=== PATIENT | female | born 1960 | race Caucasian/White ===

== ENCOUNTER 2017-09-01 08:13 | Inpatient (IN) ==
--- NOTE | 2017-09-01 09:35 | ED ---
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 She states over the past day she has been having swelling and pain to her left leg. She states in the past she was told that her great saphenous vein did not give blood flow back to her heart and that is why they put her on the diuretic. She denies prior blood clot. She denies travel history. Duration of symptoms has been 1 day. Location is entire left leg complaint: other (left leg pain and swelling) Onset (ago): day(s) Relieving factors: nothing Exacerbating factors: movement Associated symptoms: swelling Other symptoms: none Related Data Home Medications Medication Instructions Recorded Confirmed bupropion HCl [Wellbutrin XL] 300 mg PO QAM 09/01/17 09/01/17 clonazepam 0.5 mg PO BID PRN 09/01/17 09/01/17 dicyclomine 10 mg PO QID PRN 09/01/17 09/01/17 escitalopram oxalate 20 mg PO DAILY 09/01/17 09/01/17 hydrochlorothiazide 25 mg PO DAILY 09/01/17 09/01/17 levothyroxine 112 mcg PO DAILY 09/01/17 09/01/17 pantoprazole 40 mg PO DAILY 09/01/17 09/01/17 potassium chloride 10 meq PO DAILY 09/01/17 09/01/17 simvastatin 10 mg PO QPM 09/01/17 09/01/17 Allergies Allergy/AdvReac Type Severity Reaction Status Date / Time prednisone Allergy Confusion Verified 09/01/17 09:15 Review of Systems Except as stated in HPI: all other systems reviewed are negative [facility] Medical History Medical History Anxiety (Acute) Bradycardia (Acute) H/O thyroidectomy (Acute) H/O: hysterectomy (Acute) High cholesterol (Acute) Surgical History Surgical History Hx of cholecystectomy (Acute) Hx of tonsillectomy (Acute) Social History Social History Substance History: No History of Abuse Smoking Status: Never smoker How Often Do You Have a Drink Containing Alcohol: Never Recent Travel in [facility] within the Last 8 Weeks: No Recent Out of Country Travel within the Last 8 Weeks: No Immunization History Tetanus Immunization: <5 Years Hx Influenza Vaccine This Season: Yes Exam Narrative Exam Narrative: GENERAL: 57-year-old female in no apparent distress SKIN: Focused skin assessment warm/dry. HEAD: Atraumatic. Normocephalic. EYES: Pupils equal and round. No scleral icterus. No injection or drainage. ENT: No nasal bleeding or discharge. Mucous membranes pink and moist. NECK: Trachea midline. No JVD. CARDIOVASCULAR: Regular rate and rhythm. RESPIRATORY: No accessory muscle use. Clear to auscultation. Breath sounds equal bilaterally. GASTROINTESTINAL: Abdomen soft, non-tender, nondistended. MUSCULOSKELETAL: No obvious deformities. No clubbing. Patient with significant edema noted to entire left leg with dilated superficial veins, no joint pain NEUROLOGICAL: Awake and alert. No obvious cranial nerve deficits. Motor grossly within normal limits. Normal speech. PSYCHIATRIC: Appropriate mood and affect; insight and judgment normal. Course Reevaluation(s) Reevaluation #1: Patient updated and agrees to admission. Placed on heparin bolus and drip and potassium was started to be replaced. Consultations Consultation #1: dr kirkland will [facility] agrees to admit Initial Documented Vital Signs Temperature 97.8 F 09/01/17 08:17 Pulse Rate 75 09/01/17 08:17 Respiratory Rate 16 09/01/17 08:17 Blood Pressure 100/57 L 09/01/17 08:17 Pulse Oximetry 100 09/01/17 08:17 Last Documented Vital Signs Temperature 97.8 F 09/01/17 08:17 Pulse Rate 64 09/01/17 09:00 Respiratory Rate 17 09/01/17 09:00 Blood Pressure 108/72 09/01/17 09:00 Pulse Oximetry 96 09/01/17 09:00 Medical Decision Making MDM Narrative Medical decision making narrative: Will check blood work and Doppler ultrasound and reevaluate. If that is negative she will need CT angiogram of the leg Differential Diagnosis Differential Diagnosis: DVT, arterial insufficiency, venous stasis Lab Data Result diagrams: 09/01/17 09:30 09/01/17 09:30 Lab Results 09/01/17 09/01/17 09/01/17 Range/Units 09:30 09:30 09:30 WBC 12.2 H (4.0-11.0) th/mm3 RBC 4.73 (4.00-5.30) mil/mm3 Hgb 14.2 (11.6-15.3) gm/dL Hct 41.4 (35.0-46.0) % MCV 87.5 (80.0-100.0) fL MCH 30.1 (27.0-34.0) pg MCHC 34.4 (32.0-36.0) % RDW 13.2 (11.6-17.2) % Plt Count 318 (150-450) th/mm3 MPV 8.9 (7.0-11.0) fL Neut % (Auto) 80.1 H (16.0-70.0) % Lymph % (Auto) 9.4 (9.0-44.0) % [place] % (Auto) 7.7 (0.0-8.0) % Eos % (Auto) 1.9 (0.0-4.0) % Baso % (Auto) 0.9 (0.0-2.0) % Neut # (Auto) 9.7 H (1.8-7.7) th/mm3 Lymph # (Auto) 1.2 (1.0-4.8) th/mm3 [place] # (Auto) 0.9 (0.0-0.9) th/mm3 Eos # (Auto) 0.2 (0.0-0.4) th/mm3 Baso # (Auto) 0.1 (0.0-0.2) th/mm3 WBC Differential . Differential Comment Auto diff final PT 11.0 (9.8-11.6) sec INR 1.1 Ratio APTT 22.9 L (24.3-30.1) sec Sodium 137 (136-145) meq/L Potassium 2.3 L* (3.5-5.1) meq/L Chloride 98 (98-107) meq/L Carbon Dioxide 24.3 (21.0-32.0) meq/L Anion Gap 15 (5-15) meq/L BUN 9 (7-18) mg/dL Creatinine 1.28 H (0.50-1.00) mg/dL Estimated GFR 43 L (>89) mL/min Random Glucose 131 H (74-106) mg/dL Calcium 8.8 (8.5-10.1) mg/dL Imaging Data Radiologist's impression: ITS Impressions Venous Doppler Study 09/01/17 09:16 CONCLUSION: 1. Extensive deep venous thrombosis as above. Discharge Plan Physicians Team ED Provider: Ernestina Monreal Primary Care Provider: Rubina Freire Attending Provider: Lito Kirkland Rxs /Orders / Referrals /Forms Prescriptions: No Action clonazepam 0.5 mg Tablet 0.5 mg PO BID PRN (Reason: Anxiety) RF: 0 levothyroxine 112 mcg Capsule 112 mcg PO DAILY RF: 0 simvastatin 10 mg Tablet 10 mg PO QPM RF: 0 potassium chloride 10 mEq Tablet Extended Release 10 meq PO DAILY RF: 0 pantoprazole 40 mg Tablet,Delayed Release (Dr/Ec) 40 mg PO DAILY RF: 0 hydrochlorothiazide 25 mg Tablet 25 mg PO DAILY RF: 0 dicyclomine 10 mg Capsule 10 mg PO QID PRN (Reason: Cramps) RF: 0 escitalopram oxalate 20 mg Tablet 20 mg PO DAILY RF: 0 bupropion HCl [Wellbutrin XL] 300 mg Tablet Extended Release 24 Hr 300 mg PO QAM RF: 0 Discharge Interventions Interventions: Vital Signs Last Done: 09/01/17 09:00 Status ED Status: Admitted Patient
[2017-09-01 09:41] LABS: Baso # (Auto) 0.1 th/mm3 (0.0-0.2); Baso % (Auto) 0.9 % (0.0-2.0); Eos # (Auto) 0.2 th/mm3 (0.0-0.4); Eos % (Auto) 1.9 % (0.0-4.0); Hematocrit 41.4 % (35.0-46.0); Hemoglobin 14.2 gm/dL (11.6-15.3); Lymph # (Auto) 1.2 th/mm3 (1.0-4.8); Lymph % (Auto) 9.4 % (9.0-44.0); Mean Corpuscular HGB Conc 34.4 % (32.0-36.0); Mean Corpuscular Hemoglobin 30.1 pg (27.0-34.0); Mean Corpuscular Volume 87.5 fL (80.0-100.0); Mean Platelet Volume 8.9 fL (7.0-11.0); Mono # (Auto) 0.9 th/mm3 (0.0-0.9); Mono % (Auto) 7.7 % (0.0-8.0); Neut # (Auto) 9.7 th/mm3 (1.8-7.7); Neut % (Auto) 80.1 % (16.0-70.0); Platelet Count 318 th/mm3 (150-450); Red Blood Count 4.73 mil/mm3 (4.00-5.30); Red Cell Distribution Width 13.2 % (11.6-17.2); White Blood Count 12.2 th/mm3 (4.0-11.0)
[2017-09-01 09:55] LABS: Activated Partial Thrombo Time 22.9 sec (24.3-30.1); INR 1.1 Ratio
--- NOTE | 2017-09-01 09:57 | US ---
EXAM DATE: 09/01/2017 9:51 AM EDT AGE/SEX: 57 years / Female INDICATIONS: Left leg pain. CLINICAL DATA: This is the patient's initial encounter. Patient reports that signs and symptoms have been present for 2 days and indicates a pain score of 8/10. MEDICAL/SURGICAL HISTORY: Hypercholesterolemia. Anxiety. Bradycardia. Cholecystectomy. Hyster ectomy. Tonsillectomy. Thyroidectomy. COMPARISON: No prior exams available for comparison. TECHNIQUE: Venous ultrasound of both lower extremities was performed from the inguinal ligament to t he proximal calf. Real-time, color Doppler and spectral tracing, compression and augmentation techni ques were used. FINDINGS: Extensive deep venous thrombosis is seen beginning below the knee extending through the de ep femoral vein to the inguinal ligament. CONCLUSION: 1. Extensive deep venous thrombosis as above. Electronically signed by: Rai Moreno MD 09/01/2017 9:56 AM EDT
[2017-09-01 10:04] LABS: Calcium 8.8 mg/dL (8.5-10.1); Carbon Dioxide 24.3 meq/L (21.0-32.0)
[2017-09-01 10:10] LABS: Potassium 2.3 meq/L (3.5-5.1)
[2017-09-01] MEDS ORDERED: Heparin Drip 25,000 UNIT/250 ML BAG IV.CONT PRN (10:33)
[2017-09-01] MEDS ORDERED: Heparin 10,000 UNITS/10 ML Vial (for IV use) IV.PUSH STA (10:33)
[2017-09-01] MEDS ORDERED: Potassium Chloride 25 MEQ Effervescent Tablet PO ONE (10:33)
[2017-09-01] MEDS ORDERED: Acetaminophen 325 MG Tablet PO ONE (11:03)
--- NOTE | 2017-09-01 12:45 | P.HP ---
History of Present Illness Primary Care Physician: Rubina Freire MD Chief Complaint: LLE edema History of Present Illness: This is a 57 year old female patient Adrenal nodule, hypothyroidism, HTN, hyperlipidemia, Sleep apnea, asthma/depression, ? 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 " presents tot the ER today due to left lower extremity and aching/tight pain which has been present x 1 day. Patient began having aching pain left calf 3 days ago the left lower extremity became edematous from thigh down to ankle which started last night. Patient has had having intermitted difficult with diarrhea and abdominal pain since February and has had two recent hospitalizations with limited mobility. Patient reports in January she had bone marrow biopsy by Dr. Santiago which showed, "a collection of B cells," and have been followed for possible lymphoma. In February patient was having BMs approximately 6 times a day. Diarrhea is non- bloody not black and was initially nonpainful. In May 2017 patient started having abd pain went to [facility] Found to have bradycardia (as low as 30s) and hypotension. At that time patient had EGD and colonoscopy per patient and daughter they were both normal. Patient was found to have a low cortisol level of 2.2. Cortrophin stem test was done but reportedly did not show adrenal insufficiency. Patient was told that she was, "depleted," from diarrhea for months. Then in July 2017 patient had an episode of confusion went to [facility] found to again have bradycardia and hypotension (requiring pressors). At that time a nuclear stress test was done but patient and daughter do not know results. At that time patient was diagnosed with pancolitis via CT scan treated with abx for five days then coloscopy done which was reportedly normal and abx were stopped. Patient has followed up with Gastroenterology Dr. Verduzco outpatient. A second EGD was done outpatient 2 weeks ago has not yet followed up for results. Now diarrhea has improved patient reports that she has no BMs and then other days she will have 3-4 liquid BMs in a day. Diarrhea has no blood or black color present. Patient also reports constant midepigastric pain worse after eating but also happens spontaneously also. Abdominal pain associated with nausea and dry heaves. Patient has had decreased PO intake due to lack of appetite and fear of pain. Patient has lost 20 lbs since February. 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 This includes certification that hospital inpatient services are reasonable and necessary and in the case of services not specified as inpatient-only under 42 CFR 419.22(n), that they are appropriately provided as inpatient services in accordance to with the 2-midnight benchmark under 43 CFR 412.3(e) Review of Systems All other systems reviewed negative except as stated in HPI PMFSH - History History Provided By: Patient, Family Member - Medical History Medical History: Medical History (Last Reviewed 09/01/17 @ 09:34 by Ernestina Monreal MD) Anxiety Bradycardia H/O thyroidectomy H/O: hysterectomy High cholesterol - Surgical History Surgical History: Surgical History (Last Reviewed 09/01/17 @ 09:34 by Ernestina Monreal MD) Hx of cholecystectomy Hx of tonsillectomy - Tobacco History Smoking Status: Never smoker - Alcohol History How Often Do You Have a Drink Containing Alcohol: Never - Substance Use History Substance History: No History of Abuse - Travel History Recent Travel in the [place] Within the Last 8 Weeks: No Recent Travel Out of the Country Within the Last 8 Weeks: No - Immunization History Tetanus Immunization: <5 Years Hx Influenza Vaccine This Season: Yes Medications and Allergies Active Medications: Active Medications Heparin Sodium/Dextrose (Heparin/D5w 25,000 U/250 Ml) 25,000 unit in 250 mls @ 0 mls/hr IV.CONT TITRATE PRN; Protocol PRN Reason: Per Protocol Last Admin: 09/01/17 11:18 Dose: 1,300 units/hr, 13 mls/hr Allergies Allergy/AdvReac Type Severity Reaction Status Date / Time prednisone Allergy Confusion Verified 09/01/17 09:15 Home Medications Medication Instructions Recorded Confirmed Type bupropion HCl [Wellbutrin XL] 300 mg PO QAM 09/01/17 09/01/17 History clonazepam 0.5 mg PO BID PRN 09/01/17 09/01/17 History dicyclomine 10 mg PO QID PRN 09/01/17 09/01/17 History escitalopram oxalate 20 mg PO DAILY 09/01/17 09/01/17 History levothyroxine 112 mcg PO DAILY 09/01/17 09/01/17 History pantoprazole 40 mg PO DAILY 09/01/17 09/01/17 History potassium chloride 10 meq PO DAILY 09/01/17 09/01/17 History simvastatin 10 mg PO QPM 09/01/17 09/01/17 History Exam Vital signs: Vital Signs 09/01/17 08:17 09/01/17 09:00 Temperature 97.8 F Pulse Rate 75 64 Respiratory Rate 16 17 Blood Pressure 100/57 L 108/72 Pulse Oximetry 100 96 Intake & Output 08/31/17 09/01/17 09/01/17 18:59 06:59 18:59 Weight 69.853 kg Narrative: GENERAL: This is a well-nourished, well-developed patient, in no apparent distress. CARDIOVASCULAR: Regular rate and rhythm RESPIRATORY: Clear to auscultation. Breath sounds equal bilaterally. GASTROINTESTINAL: Abdomen soft, tender midepigastric area, nondistended. Normal active bowel sounds MUSCULOSKELETAL: LLE edema from thigh to ankle NEURO: Alert & Oriented x4 to person, place, time, situation. Moves all ext x4 Results - Labs CBC & Chem 7: 09/01/17 09:30 09/01/17 09:30 Labs: Laboratory Results - last 24 hr 09/01/17 09/01/17 09/01/17 09:30 09:30 09:30 WBC 12.2 H RBC 4.73 Hgb 14.2 Hct 41.4 MCV 87.5 MCH 30.1 MCHC 34.4 RDW 13.2 Plt Count 318 MPV 8.9 Neut % (Auto) 80.1 H Lymph % (Auto) 9.4 [place] % (Auto) 7.7 Eos % (Auto) 1.9 Baso % (Auto) 0.9 Neut # (Auto) 9.7 H Lymph # (Auto) 1.2 [place] # (Auto) 0.9 Eos # (Auto) 0.2 Baso # (Auto) 0.1 WBC Differential . Differential Comment Auto diff final PT 11.0 INR 1.1 APTT 22.9 L Sodium 137 Potassium 2.3 L* Chloride 98 Carbon Dioxide 24.3 Anion Gap 15 BUN 9 Creatinine 1.28 H Estimated GFR 43 L Random Glucose 131 H Calcium 8.8 - Imaging Impressions Venous Doppler Study 09/01/17 09:16 CONCLUSION: 1. Extensive deep venous thrombosis as above. Caprini VTE Risk Assessment Caprini VTE Risk Assessment: Moderate/High Risk (score >= 2) Caprini Risk Assessment Model: Point Value = 1 Point Value = 2 Point Value = 3 Point Value = 5 Age 41-60 Minor surgery BMI > 25 kg/m2 Swollen legs Varicose veins or History of unexplained or recurrent spontaneous Oral contraceptives or hormone replacement Sepsis (< 1 month) Serious lung disease, including pneumonia (< 1 month) Abnormal pulmonary function Acute myocardial infarction Congestive heart failure (< 1 month) History of inflammatory bowel disease Medical patient at bed rest Age 61-74 Arthroscopic surgery Major open surgery (> 45 min) Laparoscopic surgery (> 45 min) Malignancy Confined to bed (> 72 hours) Immobilizing plaster cast Central venous access Age >= 75 History of VTE Family history of VTE Factor V Leiden Prothrombin [id number] Lupus anticoagulant Anticardiolipin antibodies Elevated serum homocysteine Heparin-induced thrombocytopenia Other congenital or acquired thrombophilia Stroke (< 1 month) Elective arthroplasty Hip, pelvis, or leg fracture Acute spinal cord injury (< 1 month) Prophylaxis Regimen: Total Risk Factor Score Risk Level Prophylaxis Regimen 0-1 Low Early ambulation 2 Moderate Order ONE of the following: *Sequential Compression Device (SCD) *Heparin 5000 units SQ BID 3-4 Higher Order ONE of the following medications: *Heparin 5000 units SQ TID *Enoxaparin/Lovenox 40 mg SQ daily (WT < 150 kg, CrCl > 30 mL/min) *Enoxaparin/Lovenox 30 mg SQ daily (WT < 150 kg, CrCl > 10-29 mL/min) *Enoxaparin/Lovenox 30 mg SQ BID (WT < 150 kg, CrCl > 30 mL/min) AND/OR *Sequential Compression Device (SCD) 5 or more Highest Order ONE of the following medications: *Heparin 5000 units SQ TID (Preferred with Epidurals) *Enoxaparin/Lovenox 40 mg SQ daily (WT < 150 kg, CrCl > 30 mL/min) *Enoxaparin/Lovenox 30 mg SQ daily (WT < 150 kg, CrCl > 10-29 mL/min) *Enoxaparin/Lovenox 30 mg SQ BID (WT < 150 kg, CrCl > 30 mL/min) AND *Sequential Compression Device (SCD) Assessment and Plan - Assessment (1) DVT (deep venous thrombosis) Code(s): I82.409 - Acute embolism and thrombosis of unspecified deep veins of unspecified lower extremity Status: Acute Plan: DVT LLE Patient with two recent hospitalizations likely causing DVT but patient is being followed by outpatient Oncology/Hematology Dr. Santiago for concern of "pre-lymphoma" US LLE revealed: Extensive deep venous thrombosis Started on Heparin drip in the ER, which is currently running Will check anti-cardiolipin antibody, Beta 2 glycoprotein abs, Lupus anticoagulant, prothrombin gene mutation Hypokalemia Patient with chronic diarrhea for 6 months and poor PO intake Potassium 2.3 on admission to the ER Given in the ER potassium 40 mg Q4H X2 doses recheck potassium at 1700 mag pending continuous Telemetry Recurrent hypotension and bradycardia concern and question regarding adrenal insufficiency Cosyntropin stim test in AM continuous cardiac telemetry hypothyroidism Continue patient home Synthroid TSH 1.640 Free T4 1.08 Sleep apnea Patient may use home CPAP asthma DuoNeb as needed chronic diarrhea Supportive care IVF C diff Stool ova and parasites, stool culture
[2017-09-01] MEDS ORDERED: Sod Chloride 0.9% Inj 1,000 ML IV.CONT SCH (13:30)
[2017-09-01] MEDS: Dicyclomine 10 MG Capsule PO PRN (14:04)
[2017-09-01 14:08] LABS: Magnesium 2.2 mg/dL (1.5-2.5)
[2017-09-01] MEDS ORDERED: Morphine Sulfate Inj 2 MG/ML Vial IV.PUSH PRN (14:15)
[2017-09-01 14:16] LABS: Free T4 (Free Thyroxine) 1.08 ng/dL (0.76-1.46); Thyroid Stimulating Hormone 1.64 uIU/mL (0.358-3.740)
--- NOTE | 2017-09-01 15:49 | CT ---
EXAM DATE: 09/01/2017 3:42 PM EDT AGE/SEX: 57 years / Female INDICATIONS: Short of breath and abdominal pain. CLINICAL DATA: This is the patient's initial encounter. Patient reports that signs and symptoms have been present for 1 day and indicates a pain score of 5/10. MEDICAL/SURGICAL HISTORY: . bradycardia Cholecystectomy. Hysterectomy. Thyroidectomy. ORAL CONTRAST: Prescribed oral contrast ingested. RADIATION DOSE: 8.05 CTDI (mGy) ; Combined studies COMPARISON: No prior exams available for comparison. TECHNIQUE: Multiple contiguous axial images were obtained through the abdomen and pelvis following b olus infusion of 75 ml Omnipaque 350 (iohexol) nonionic water-soluble contrast as a cumulative dose for multiple exams. Prescribed oral contrast ingested. Using automated exposure control and adjustm ent of the mA and/or kV according to patient size, radiation dose was kept as low as reasonably achie vable to obtain optimal diagnostic quality images. DICOM format image data is available electronical ly for review and comparison. FINDINGS: The lower lungs are clear. There is no pericardial effusion The liver is free of focal defects. Surgical clips gallbladder and the gallbladder fossa The spleen and pancreas unremarkable . Adrenal glands appear normal Right kidney: Symmetrical function without stone or mass Left kidney: Symmetrical function without stone or mass And no inflammatory changes in the abdomen. There is no free fluid In the pelvis there are minimal diverticuli in the sigmoid colon. There is no free fluid or free air. Review of bone windows reveals mild degenerative changes about both SI joints. There are moderate degenerative changes lower lumbar spine CONCLUSION: 1. Negative CT scan of the abdomen and pelvis. I do not see an etiology for the patient's abdominal pain and short of breath shortness of breath. Electronically signed by: Rai Moreno MD 09/01/2017 3:48 PM EDT
--- NOTE | 2017-09-01 15:53 | CT ---
EXAM DATE: 09/01/2017 3:41 PM EDT AGE/SEX: 57 years / Female INDICATIONS: Short of breath, abdominal pain. CLINICAL DATA: This is the patient's initial encounter. Patient reports that signs and symptoms have been present for 1 day and indicates a pain score of 5/10. MEDICAL/SURGICAL HISTORY: . bradycardia Cholecystectomy. Hysterectomy. Thyroidectomy. RADIATION DOSE: 8.05 CTDI (mGy) ; Combined studies COMPARISON: No prior exams available for comparison. TECHNIQUE: Volumetric scanning was performed using a multi-row detector CT scanner during bolus infu nader of 75 ml Omnipaque 350 (iohexol) nonionic water-soluble contrast as a cumulative dose for multi ple exams. The data was post processed with a variety of visualization algorithms including full volu me maximum intensity projection and sliding thin slab reformation. Using automated exposure control and adjustment of the mA and/or kV according to patient size, radiation dose was kept as low as reaso nably achievable to obtain optimal diagnostic quality images. DICOM format image data is available e lectronically for review and comparison. FINDINGS: Examination of the pulmonary vasculature demonstrates good filling of the main, lobar and segmental b ranches. There are no filling defects to suggest pulmonary embolism. Multiplanar reconstructions are also unremarkable. The lungs are free of acute parenchymal opacity. No pulmonary nodules or pleural effusions are identi fied. Examination of the mediastinum demonstrates no abnormally enlarged lymph nodes by CT criteria. No axillary or hilar abnormalities are identified. Coronary artery calcifications are not present. CONCLUSION: No evidence of pulmonary embolism. Electronically signed by: Mike Branch MD 09/01/2017 3:52 PM EDT
[2017-09-01] MEDS: Morphine Inj 4 MG/ML Vial IV.PUSH PRN (18:42)
[2017-09-01] MEDS: buPROPion 150 MG 12 HR Tablet PO SCH (20:41)
[2017-09-02] MEDS: Levothyroxine 112 MCG Tablet PO SCH (06:40)
[2017-09-02] MEDS: Dicyclomine 10 MG Capsule PO PRN (06:51)
--- NOTE | 2017-09-02 07:47 | P.PNIM ---
Subjective Interval history: Follow up DVT Patient reports continued pain LLE pain relieved by [facility] [place] 5-325mg and continued chronic abd pain Physical Exam Vital signs: Vital Signs 09/01/17 08:17 09/01/17 09:00 09/01/17 11:30 Temperature 97.8 F Pulse Rate 75 64 54 L Respiratory Rate 16 17 20 Blood Pressure 100/57 L 108/72 100/62 Pulse Oximetry 100 96 98 09/01/17 12:00 09/01/17 13:00 09/01/17 14:00 Temperature Pulse Rate 54 L 65 62 Respiratory Rate 18 16 16 Blood Pressure 93/53 L 93/65 L 100/65 Pulse Oximetry 99 96 98 09/01/17 16:00 09/01/17 20:00 09/01/17 23:04 Temperature 97.8 F 97.3 F L 98.0 F Pulse Rate 52 L 58 L 57 L Respiratory Rate 16 17 16 Blood Pressure 91/50 L 90/65 L 90/56 L Pulse Oximetry 95 97 98 09/02/17 01:27 09/02/17 03:48 09/02/17 03:50 Temperature 98.3 F Pulse Rate 57 L 53 L Respiratory Rate 15 Blood Pressure 94/60 L 84/54 L Pulse Oximetry 954 H 09/02/17 07:21 Temperature Pulse Rate Respiratory Rate Blood Pressure 98/60 L Pulse Oximetry Intake & Output 09/01/17 09/02/17 09/02/17 18:59 06:59 18:59 Weight 69.853 kg 71.214 kg Other: # Voids 3 Weight On Admission 71.214 kg Narrative: GENERAL: This is a well-nourished, well-developed patient, in no apparent distress. CARDIOVASCULAR: Regular rate and rhythm RESPIRATORY: Clear to auscultation. Breath sounds equal bilaterally. GASTROINTESTINAL: Abdomen soft, tender midepigastric area, nondistended. Normal active bowel sounds MUSCULOSKELETAL: LLE edema from thigh to ankle NEURO: Alert & Oriented x4 to person, place, time, situation. Moves all ext x4 Results - Labs CBC & Chem 7: 09/02/17 07:30 09/02/17 07:30 Laboratory Results - last 24 hr 09/01/17 09/01/17 09/01/17 09:30 09:30 09:30 WBC 12.2 H RBC 4.73 Hgb 14.2 Hct 41.4 MCV 87.5 MCH 30.1 MCHC 34.4 RDW 13.2 Plt Count 318 MPV 8.9 Neut % (Auto) 80.1 H Lymph % (Auto) 9.4 [place] % (Auto) 7.7 Eos % (Auto) 1.9 Baso % (Auto) 0.9 Neut # (Auto) 9.7 H Lymph # (Auto) 1.2 [place] # (Auto) 0.9 Eos # (Auto) 0.2 Baso # (Auto) 0.1 WBC Differential . Differential Comment Auto diff final PT 11.0 INR 1.1 APTT 22.9 L Sodium 137 Potassium 2.3 L* Chloride 98 Carbon Dioxide 24.3 Anion Gap 15 BUN 9 Creatinine 1.28 H Estimated GFR 43 L Random Glucose 131 H Calcium 8.8 Magnesium TSH Free T4 Cortisol Stl C.difficile Tox PCR St C. diff Tox Epid 027 09/01/17 09/01/17 09/01/17 09:30 09:30 14:52 WBC RBC Hgb Hct MCV MCH MCHC RDW Plt Count MPV Neut % (Auto) Lymph % (Auto) [place] % (Auto) Eos % (Auto) Baso % (Auto) Neut # (Auto) Lymph # (Auto) [place] # (Auto) Eos # (Auto) Baso # (Auto) WBC Differential Differential Comment PT INR APTT Sodium Potassium Chloride Carbon Dioxide Anion Gap BUN Creatinine Estimated GFR Random Glucose Calcium Magnesium 2.2 Cancelled TSH 1.640 Free T4 1.08 Cortisol Stl C.difficile Tox PCR Negative St C. diff Tox Epid 027 Negative 09/01/17 09/01/17 09/01/17 18:47 18:47 23:50 WBC RBC Hgb Hct MCV MCH MCHC RDW Plt Count MPV Neut % (Auto) Lymph % (Auto) [place] % (Auto) Eos % (Auto) Baso % (Auto) Neut # (Auto) Lymph # (Auto) [place] # (Auto) Eos # (Auto) Baso # (Auto) WBC Differential Differential Comment PT INR APTT 94.1 H* D 40.4 H D Sodium Potassium 2.5 L* Chloride Carbon Dioxide Anion Gap BUN Creatinine Estimated GFR Random Glucose Calcium Magnesium TSH Free T4 Cortisol Stl C.difficile Tox PCR St C. diff Tox Epid 027 09/02/17 05:00 WBC RBC Hgb Hct MCV MCH MCHC RDW Plt Count MPV Neut % (Auto) Lymph % (Auto) [place] % (Auto) Eos % (Auto) Baso % (Auto) Neut # (Auto) Lymph # (Auto) [place] # (Auto) Eos # (Auto) Baso # (Auto) WBC Differential Differential Comment PT INR APTT Sodium Potassium Chloride Carbon Dioxide Anion Gap BUN Creatinine Estimated GFR Random Glucose Calcium Magnesium TSH Free T4 Cortisol 4.0 Stl C.difficile Tox PCR St C. diff Tox Epid 027 Microbiology 09/01/17 14:52 Stool Enteric Pathogens (PCR) - Final No enteric pathogens detected by PCR (No Salmonella sp., Shigella sp., Campylobacter sp., Yersinia enterocolitica, Vibrio sp., Norovirus, or EHEC (Shiga Toxin 1 or Shiga Toxin 2) detected. - Imaging Impressions Abdomen/Pelvis CT 09/01/17 00:00 CONCLUSION: 1. Negative CT scan of the abdomen and pelvis. I do not see an etiology for the patient's abdominal pain and short of breath shortness of breath. Chest CTA 09/01/17 00:00 CONCLUSION: No evidence of pulmonary embolism. Venous Doppler Study 09/01/17 09:16 CONCLUSION: 1. Extensive deep venous thrombosis as above. Assessment and Plan - Assessment (1) DVT (deep venous thrombosis) Code(s): I82.409 - Acute embolism and thrombosis of unspecified deep veins of unspecified lower extremity Status: Acute Plan: DVT LLE Patient with two recent hospitalizations likely causing DVT but patient is being followed by outpatient Oncology/Hematology Dr. Santiago for concern of "pre-lymphoma" US LLE revealed: Extensive deep venous thrombosis Started on Heparin drip in the ER, will transition to Eliquis anti-cardiolipin antibody, Beta 2 glycoprotein abs, Lupus anticoagulant, prothrombin gene mutation (pending) CTA chest reviewed and reveals: No evidence of PE Examination of the pulmonary vasculature demonstrates good filling of the main, lobar and segmental branches. There are no filling defects to suggest pulmonary embolism. Multiplanar reconstructions are also unremarkable. The lungs are free of acute parenchymal opacity. No pulmonary nodules or pleural effusions are identified. Examination of the mediastinum demonstrates no abnormally enlarged lymph nodes by CT criteria. No axillary or hilar abnormalities are identified. Coronary artery calcifications are not present. CT abd/pelvis reviewed and reveals: . Negative CT scan of the abdomen and pelvis. I do not see an etiology for the patient's abdominal pain and short of breath shortness of breath. The lower lungs are clear. There is no pericardial effusion The liver is free of focal defects. Surgical clips gallbladder and the gallbladder fossa The spleen and pancreas unremarkable Adrenal glands appear normal Right kidney: Symmetrical function without stone or mass Left kidney: Symmetrical function without stone or mass And no inflammatory changes in the abdomen. There is no free fluid In the pelvis there are minimal diverticuli in the sigmoid colon. There is no free fluid or free air. Review of bone windows reveals mild degenerative changes about both SI joints. There are moderate degenerative changes lower lumbar spine Hypokalemia Patient with chronic diarrhea for 6 months and poor PO intake Potassium 2.3 on admission -> 2.5 -> 2.8 mag 2.2 continuous Telemetry replace recheck at 1700 Recurrent hypotension and bradycardia concern and question regarding adrenal insufficiency Cosyntropin stim test cortisol level 4.0 before Cosyntropin then 45.8 after Cosyntropin continuous cardiac telemetry hypothyroidism Continue patient home Synthroid TSH 1.640 Free T4 1.08 Sleep apnea Patient may use home CPAP asthma DuoNeb as needed chronic diarrhea Supportive care IVF C diff (negative) Stool ova and parasites, stool culture
[2017-09-02 08:40] LABS: Baso # (Auto) 0.1 th/mm3 (0.0-0.2); Baso % (Auto) 1.3 % (0.0-2.0); Eos # (Auto) 0.4 th/mm3 (0.0-0.4); Eos % (Auto) 6.2 % (0.0-4.0); Hematocrit 35.3 % (35.0-46.0); Hemoglobin 12.2 gm/dL (11.6-15.3); Lymph # (Auto) 1.7 th/mm3 (1.0-4.8); Lymph % (Auto) 23.2 % (9.0-44.0); Mean Corpuscular HGB Conc 34.5 % (32.0-36.0); Mean Corpuscular Hemoglobin 30.7 pg (27.0-34.0); Mean Corpuscular Volume 88.9 fL (80.0-100.0); Mean Platelet Volume 9.4 fL (7.0-11.0); Mono # (Auto) 0.7 th/mm3 (0.0-0.9); Mono % (Auto) 9.9 % (0.0-8.0); Neut # (Auto) 4.3 th/mm3 (1.8-7.7); Neut % (Auto) 59.4 % (16.0-70.0); Platelet Count 262 th/mm3 (150-450); Red Blood Count 3.97 mil/mm3 (4.00-5.30); Red Cell Distribution Width 13.4 % (11.6-17.2); White Blood Count 7.2 th/mm3 (4.0-11.0)
[2017-09-02 09:17] LABS: Alanine Aminotransferase 32 U/L (10-53); Albumin 3.4 g/dL (3.4-5.0); Alkaline Phosphatase 91 U/L (45-117); Anion Gap 12 meq/L (5-15); Aspartate Aminotransferase 23 U/L (15-37); Blood Urea Nitrogen 9 mg/dL (7-18); Calcium 8.2 mg/dL (8.5-10.1); Carbon Dioxide 23.3 meq/L (21.0-32.0); Chloride 105 meq/L (98-107); Glomerular Filtration Rate 57 mL/min (>89); Glucose,Random 101 mg/dL (74-106); Sodium 140 meq/L (136-145); Total Protein 6.4 g/dL (6.4-8.2)
[2017-09-02 09:21] LABS: Potassium 2.8 meq/L (3.5-5.1)
[2017-09-02] MEDS: buPROPion 150 MG 12 HR Tablet PO SCH ×2 (09:23→21:43)
[2017-09-03] MEDS: Levothyroxine 112 MCG Tablet PO SCH (06:09)
[2017-09-03 08:56] LABS: Calcium 8.3 mg/dL (8.5-10.1); Carbon Dioxide 25.7 meq/L (21.0-32.0); Potassium 3.1 meq/L (3.5-5.1)
--- NOTE | 2017-09-03 09:41 | P.PNIM ---
Subjective Interval history: Pt very tearful this morning and concerned about the pain and swelling in the LLE She is unable to stand and bear weight on the left leg She has some lower abdominal discomfort which she attributes to straining more with her abdominal muscles to ambulate. Physical Exam Vital signs: Vital Signs 09/02/17 12:00 09/02/17 14:49 09/02/17 15:44 Temperature 98.8 F Pulse Rate 60 63 Respiratory Rate 16 Blood Pressure 84/52 L 79/51 L 94/60 L Pulse Oximetry 94 L 09/02/17 16:00 09/02/17 20:00 09/02/17 20:05 Temperature 97 F L 98.5 F Pulse Rate 63 60 61 Respiratory Rate 20 16 Blood Pressure 97/59 L 96/52 L Pulse Oximetry 98 96 09/02/17 21:55 09/02/17 23:16 09/02/17 23:28 Temperature 98.6 F Pulse Rate 61 Respiratory Rate 18 15 Blood Pressure 102/66 92/51 L Pulse Oximetry 93 L 09/03/17 00:00 09/03/17 03:26 09/03/17 03:46 Temperature 98.3 F Pulse Rate 59 L 59 L 62 Respiratory Rate 16 Blood Pressure 94/53 L Pulse Oximetry 95 09/03/17 08:00 Temperature 98.0 F Pulse Rate 64 Respiratory Rate 18 Blood Pressure 130/69 Pulse Oximetry 98 Intake & Output 09/02/17 09/03/17 09/03/17 18:59 06:59 18:59 Intake Total 360 / 360 1350 / 1350 Balance 360 / 360 1350 / 1350 Intake: IV 1350 / 1350 Ofirmev Inj 1,000 mg In 100 ml 100 / 100 @ 400 mls/hr IV.SIG ONCE ONE Rx #:[id number] Oral 360 / 360 Narrative: GENERAL: This is a well-nourished, well-developed patient, in no apparent distress. CARDIOVASCULAR: Regular rate and rhythm RESPIRATORY: Clear to auscultation. Breath sounds equal bilaterally. GASTROINTESTINAL: Abdomen soft, tender midepigastric area, nondistended. Normal active bowel sounds MUSCULOSKELETAL: LLE edema from thigh to ankle Results - Labs CBC & Chem 7: 09/02/17 07:30 09/03/17 07:32 Laboratory Results - last 24 hr 09/02/17 09/02/17 09/03/17 07:30 23:44 07:32 Sodium 144 Potassium 3.2 L 3.1 L Chloride 108 H Carbon Dioxide 25.7 Anion Gap 10 BUN 7 Creatinine 0.89 Estimated GFR 65 L Random Glucose 99 Calcium 8.3 L Cortisol 45.8 - Imaging ITS Impressions Abdomen/Pelvis CT 09/01/17 00:00 CONCLUSION: 1. Negative CT scan of the abdomen and pelvis. I do not see an etiology for the patient's abdominal pain and short of breath shortness of breath. Chest CTA 09/01/17 00:00 CONCLUSION: No evidence of pulmonary embolism. Venous Doppler Study 09/01/17 09:16 CONCLUSION: 1. Extensive deep venous thrombosis as above. Assessment and Plan - Assessment (1) DVT (deep venous thrombosis) Code(s): I82.409 - Acute embolism and thrombosis of unspecified deep veins of unspecified lower extremity Status: Acute Plan: DVT LLE - Patient with two recent hospitalizations likely causing DVT, but patient is being followed by outpatient Oncology/Hematology Dr. Santiago for concern of "pre -lymphoma" - US LLE revealed: Extensive deep venous thrombosis - Pt was started on Heparin drip in the ER, and was transitioned to Eliquis on - Anti-cardiolipin antibody, Beta 2 glycoprotein abs, Lupus anticoagulant, prothrombin gene mutation (pending) - CTA chest: -No evidence of PE -Examination of the pulmonary vasculature demonstrates good filling of the main, lobar and segmental branches. There are no filling defects to suggest pulmonary embolism. Multiplanar reconstructions are also unremarkable. - The lungs are free of acute parenchymal opacity. No pulmonary nodules or pleural effusions are identified. Examination of the mediastinum demonstrates no abnormally enlarged lymph nodes by CT criteria. No axillary or hilar abnormalities are identified. Coronary artery calcifications are not present. - CT abd/pelvis : - Negative CT scan of the abdomen and pelvis. I do not see an etiology for the patient's abdominal pain and short of breath shortness of breath. -The lower lungs are clear. -There is no pericardial effusion -The liver is free of focal defects. Surgical clips gallbladder and the gallbladder fossa -The spleen and pancreas unremarkable -Adrenal glands appear normal -Right kidney: Symmetrical function without stone or mass -Left kidney: Symmetrical function without stone or mass -And no inflammatory changes in the abdomen. -There is no free fluid -In the pelvis there are minimal diverticuli in the sigmoid colon. There is no free fluid or free air. -Review of bone windows reveals mild degenerative changes about both SI joints. -There are moderate degenerative changes lower lumbar spine - Consult Hematology to review the case and discuss any further possible interventions that may be possible to treat the pts DVT and for any further evaluation as to another cause for the DVT. Pt any family asking about the possibility of thrombolysis or thrombectomy. Hypokalemia - Patient with chronic diarrhea for 6 months and poor PO intake - Potassium 2.3 on admission -> 2.5 -> 2.8 -> 3.2 -> 3.1 - Mag 2.2 - continuous Telemetry - Replace - monitor labs Recurrent hypotension and bradycardia - Concern and question regarding adrenal insufficiency - Cosyntropin stim test, cortisol level 4.0 before Cosyntropin then 45.8 after Cosyntropin - Continuous cardiac telemetry Hypothyroidism - Continue patient home Synthroid - TSH 1.640, Free T4 1.08 Sleep apnea - Patient may use home CPAP Asthma - DuoNeb as needed Chronic diarrhea - Supportive care - IVF - C diff was negative - Stool ova and parasites is pending. - Stool culture was negative Pt seen and examined with Tennille STEWART. Hematology consult to assess our rx of her extensive left leg dvt. ?need for any intervention at this time as pt still c/o persistent pain/swelling. Her chronic diarrhea seems better and actually asking for laxative The exam, history, and the medical decision-making described in the above note were completed with the assistance of the mid-level provider. I reviewed and agree with the findings presented. I attest that I had a [id number] encounter with the patient on the same day, and personally performed and documented my assessment and findings in the medical record. (2) Hypokalemia Code(s): E87.6 - Hypokalemia Status: Acute (3) Asthma Code(s): J45.909 - Unspecified asthma, uncomplicated Status: Chronic (4) Chronic diarrhea Code(s): K52.9 - Noninfective gastroenteritis and colitis, unspecified Status : Chronic (5) JENNIFER (obstructive sleep apnea) Code(s): G47.33 - Obstructive sleep apnea (adult) (pediatric) Status: Chronic
[2017-09-03] MEDS: buPROPion 150 MG 12 HR Tablet PO SCH ×2 (10:18→22:19)
[2017-09-03] MEDS ORDERED: Bisacodyl 10 MG Supp RECTAL PRN (13:17)
[2017-09-03] MEDS: Senna/Docusate Sodium 8.6/50 MG Tablet PO SCH (22:19)
[2017-09-04] MEDS: Levothyroxine 112 MCG Tablet PO SCH (05:21)
--- NOTE | 2017-09-04 07:43 | MB ---
cc: Tatianna Hilario MD DATE: 09/03/2017 CHIEF COMPLAINT: Venous thromboembolism. 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 The patient reports that she has been hospitalized in 05/2017, as well as in 06/2017 for several days. She reports that she had an extensive workup for diarrhea, bradycardia and hypotension. She follows closely with Dr. Verduzco, a steam gigger as well as Dr. Santiago, investigation division captain. PAST MEDICAL HISTORY: Hypothyroidism, sleep apnea, asthma, chronic diarrhea, monoclonal B cell lymphocytosis. PAST SURGICAL HISTORY: Partial hysterectomy, cholecystectomy T and A. FAMILY HISTORY: Significant cardiac history. No family history of clot. SOCIAL HISTORY: Works as a teacher. Denies tobacco, alcohol, or illegal drug use. REVIEW OF SYSTEMS: As above in the HPI. PHYSICAL EXAMINATION: GENERAL: Well-developed, well-nourished lady in no distress. CARDIOVASCULAR: Regular rate and rhythm. No murmurs, rubs or gallops. LUNGS: Clear to auscultation bilaterally. ABDOMEN: Soft, nontender. Bowel sounds present. EXTREMITIES: Left lower extremity edema and erythema. NEUROLOGIC: Alert and oriented. Grossly nonfocal. PSYCHIATRIC: With significant anxiety, tearful during conversation. LABORATORY DATA: White blood cell count 7.2, hemoglobin 12.2, platelet count 262,000. Creatinine is 0.89. Liver function tests are within normal limits. Doppler ultrasound from 09/01/2017 with extensive deep venous thrombosis extending from below the knee through the deep femoral knee vein to the inguinal ligament. CT scan of the abdomen and pelvis with no evidence of abdominal pain and CTA with no evidence of pulmonary embolism. ASSESSMENT AND PLAN: Venous thromboembolism of the left lower extremity, likely provoked due to immobility, recent long hospital stays, frequent procedures. The patient will need to be on, at minimum, 3 months of anticoagulation. She has recently been transitioned from heparin to apixaban. Discussed the risks versus benefits of outpatient apixaban with the patient. Discussed the risk of catastrophic bleeding. The patient is amenable to proceeding with this drug in the outpatient setting. Discussed that at 3 months, she can have a conversation with her primary investigation division captain, Dr. Santiago. If she is mobile and her lower extremity symptoms have completely resolved and her comorbid medical conditions have resolved as well, could consider cessation of anticoagulation or switching to low-dose anticoagulation. However, if she still has symptoms or if still having frequent hospital stays and procedures, would be inclined to leave the patient on anticoagulation. Discussed that this would be a continued conversation with her investigation division captain. The patient also has significant anxiety and fears regarding her clot and why it happened. She would like to discuss possible thrombolytic procedure or stenting with a vascular surgeon as she has a family friend who is a physician project construction assistant manager who recommended this procedure. We will place this consult at patient's request. Inpatient hematology service will continue to follow. MD MÓNICA Thomas/ANNE , 07:14 AM , 07:42 AM LINDA
--- NOTE | 2017-09-04 09:00 | P.PNIM ---
Subjective Interval history: Pt with less pain in the LLE and feels that the swelling is better She has had less pain when standing to use the bedside commode Physical Exam Vital signs: Vital Signs 09/03/17 10:17 09/03/17 12:00 09/03/17 14:05 Temperature 97.0 F L Pulse Rate 64 Respiratory Rate 18 16 16 Blood Pressure 98/57 L Pulse Oximetry 94 L 09/03/17 14:59 09/03/17 16:00 09/03/17 20:00 Temperature 98.4 F 98.5 F Pulse Rate 63 62 Respiratory Rate 16 18 17 Blood Pressure 98/57 L 99/55 L Pulse Oximetry 95 96 09/03/17 22:18 09/03/17 23:36 09/04/17 00:00 Temperature 98.2 F Pulse Rate 65 72 Respiratory Rate 15 18 Blood Pressure 102/60 Pulse Oximetry 94 L 09/04/17 01:00 09/04/17 01:30 09/04/17 04:03 Temperature Pulse Rate 67 Respiratory Rate 16 15 Blood Pressure Pulse Oximetry 09/04/17 04:50 09/04/17 05:21 09/04/17 07:31 Temperature 98.8 F 98.2 F Pulse Rate 69 61 Respiratory Rate 18 15 16 Blood Pressure 99/59 L 97/58 L Pulse Oximetry 96 95 Intake & Output 09/03/17 09/04/17 09/04/17 18:59 06:59 18:59 Other: # Voids 1 2 Date of Last Bowel Movement 09/01/17 # Bowel Movements 1 Narrative: GENERAL: This is a well-nourished, well-developed patient, in no apparent distress. CARDIOVASCULAR: Regular RESPIRATORY: CTA bilaterally. GASTROINTESTINAL: +BS, soft, nontender, nondistended. MUSCULOSKELETAL: LLE edema from upper thigh to ankle Results - Labs CBC & Chem 7: 09/04/17 08:56 09/04/17 08:56 Laboratory Results - last 24 hr 09/01/17 09/01/17 09/03/17 15:06 15:06 07:32 Sodium 144 Potassium 3.1 L Chloride 108 H Carbon Dioxide 25.7 Anion Gap 10 BUN 7 Creatinine 0.89 Estimated GFR 65 L Random Glucose 99 Calcium 8.3 L Beta-2-GPI IgG Ab <9 Beta-2-GPI IgA Ab <9 Beta-2-GPI IgM Ab <9 Anti-Cardiolipin IgG Ab <9.4 Anti-Cardiolipin IgM Ab <9.4 - Imaging ITS Impressions Abdomen/Pelvis CT 09/01/17 00:00 CONCLUSION: 1. Negative CT scan of the abdomen and pelvis. I do not see an etiology for the patient's abdominal pain and short of breath shortness of breath. Chest CTA 09/01/17 00:00 CONCLUSION: No evidence of pulmonary embolism. Venous Doppler Study 09/01/17 09:16 CONCLUSION: 1. Extensive deep venous thrombosis as above. Assessment and Plan - Assessment (1) DVT (deep venous thrombosis) Code(s): I82.409 - Acute embolism and thrombosis of unspecified deep veins of unspecified lower extremity Status: Acute Plan: DVT LLE - Patient with two recent hospitalizations likely causing DVT, but patient is being followed by outpatient Oncology/Hematology Dr. Santiago for concern of "pre -lymphoma" - US LLE revealed: Extensive deep venous thrombosis - Pt was started on Heparin drip in the ER, and was transitioned to Eliquis on - Anti-cardiolipin antibody, Beta 2 glycoprotein abs, Lupus anticoagulant, prothrombin gene mutation (pending) - CTA chest: -No evidence of PE -Examination of the pulmonary vasculature demonstrates good filling of the main, lobar and segmental branches. There are no filling defects to suggest pulmonary embolism. Multiplanar reconstructions are also unremarkable. - The lungs are free of acute parenchymal opacity. No pulmonary nodules or pleural effusions are identified. Examination of the mediastinum demonstrates no abnormally enlarged lymph nodes by CT criteria. No axillary or hilar abnormalities are identified. Coronary artery calcifications are not present. - CT abd/pelvis : - Negative CT scan of the abdomen and pelvis. I do not see an etiology for the patient's abdominal pain and short of breath shortness of breath. -The lower lungs are clear. -There is no pericardial effusion -The liver is free of focal defects. Surgical clips gallbladder and the gallbladder fossa -The spleen and pancreas unremarkable -Adrenal glands appear normal -Right kidney: Symmetrical function without stone or mass -Left kidney: Symmetrical function without stone or mass -And no inflammatory changes in the abdomen. -There is no free fluid -In the pelvis there are minimal diverticuli in the sigmoid colon. There is no free fluid or free air. -Review of bone windows reveals mild degenerative changes about both SI joints. -There are moderate degenerative changes lower lumbar spine - Appreciate consult from Hematology. - Pt to continue to Eliquis for at least 3 months and then will review with her outpt [facility] at that point about whether or not to continue it at that time. - Vascular Surgery has been consulted per pt request. - Pain control PRN Hypokalemia - Patient with chronic diarrhea for 6 months and poor PO intake - Potassium 2.3 on admission -> 2.5 -> 2.8 -> 3.2 -> 3.1 - Mag 2.2 - continuous Telemetry - Replace - Awaiting repeat labs for today Recurrent hypotension and bradycardia - Concern and question regarding adrenal insufficiency - Cosyntropin stim test, cortisol level 4.0 before Cosyntropin then 45.8 after Cosyntropin - Continuous cardiac telemetry Hypothyroidism - Continue patient home Synthroid - TSH 1.640, Free T4 1.08 Sleep apnea - Patient may use home CPAP Asthma - DuoNeb as needed Chronic diarrhea, improving - Supportive care - C diff was negative - Stool ova and parasites is pending. - Stool culture was negative PT SEEN WITH HAJA NAILS. HEMATOLOGY CONSULTED NOTED SPOKE WITH DR VALDERRAMA [facility] WHO WILL DISCUSS LYSIS AND /STENT WITH IR CONT ANTICOAGULATION. PT UPDATED. The exam, history, and the medical decision-making described in the above note were completed with the assistance of the mid-level provider. I reviewed and agree with the findings presented. I attest that I had a [id number] encounter with the patient on the same day, and personally performed and documented my assessment and findings in the medical record. (2) Hypokalemia Code(s): E87.6 - Hypokalemia Status: Acute (3) Asthma Code(s): J45.909 - Unspecified asthma, uncomplicated Status: Chronic (4) Chronic diarrhea Code(s): K52.9 - Noninfective gastroenteritis and colitis, unspecified Status : Chronic (5) JENNIFER (obstructive sleep apnea) Code(s): G47.33 - Obstructive sleep apnea (adult) (pediatric) Status: Chronic
[2017-09-04 09:41] LABS: Baso # (Auto) 0.1 th/mm3 (0.0-0.2); Baso % (Auto) 0.9 % (0.0-2.0); Eos # (Auto) 0.3 th/mm3 (0.0-0.4); Eos % (Auto) 4.2 % (0.0-4.0); Hematocrit 35.6 % (35.0-46.0); Hemoglobin 12.1 gm/dL (11.6-15.3); Lymph # (Auto) 1.7 th/mm3 (1.0-4.8); Lymph % (Auto) 25.8 % (9.0-44.0); Mean Corpuscular Hemoglobin 30.8 pg (27.0-34.0); Mean Corpuscular Volume 90.4 fL (80.0-100.0); Mean Platelet Volume 8.7 fL (7.0-11.0); Mono # (Auto) 0.6 th/mm3 (0.0-0.9); Mono % (Auto) 9.4 % (0.0-8.0); Neut % (Auto) 59.7 % (16.0-70.0); Platelet Count 290 th/mm3 (150-450); Red Blood Count 3.93 mil/mm3 (4.00-5.30); Red Cell Distribution Width 13.8 % (11.6-17.2); White Blood Count 6.7 th/mm3 (4.0-11.0)
[2017-09-04 10:09] LABS: Calcium 8.4 mg/dL (8.5-10.1); Carbon Dioxide 21.6 meq/L (21.0-32.0); Potassium 3.8 meq/L (3.5-5.1)
[2017-09-04] MEDS: Senna/Docusate Sodium 8.6/50 MG Tablet PO SCH ×2 (10:21→20:13)
[2017-09-04] MEDS: buPROPion 150 MG 12 HR Tablet PO SCH ×2 (10:21→20:13)
--- NOTE | 2017-09-04 11:17 | P.CONVS ---
History of Present Illness Service: Vascular Surgery Consult date: 09/04/17 Requesting Physician: Lito Khanna Reason for Consult: L LE DVT Primary Care Provider: Rubina Freire MD Chief Complaint: LLE edema History of Present Illness: 57 yo female with L LE swelling since Friday, adm through ED and placed on anticoagulation. + pain and persistent swelling but no motor dysfunction and limb not threatened. No personal history of prior VTE and no known hypercoagulable states. Review of Systems Constitutional: Denies anorexia, Denies body ache(s), Denies chills, Denies daytime sleepiness, Denies excessive sweating, Denies fatigue, Denies fever(s), Denies headache(s), Denies increased appetite, Denies lack of energy, Denies malaise, Denies night sweats, Denies weakness, Denies weight gain, Denies weight loss, Denies other Gastrointestinal: Reports abdominal pain Musculoskeletal: Reports joint swelling PMFSH - History History Provided By: Patient - Medical History Medical History: Medical History (Last Reviewed 09/04/17 @ 11:09 by Amarjit Padilla MD) Anxiety Bradycardia H/O thyroidectomy H/O: hysterectomy High cholesterol - Surgical History Surgical History: Surgical History (Last Reviewed 09/04/17 @ 11:09 by Amarjit Padilla MD) Hx of cholecystectomy Hx of tonsillectomy - Tobacco History Second Hand Smoke Exposure: No Smoking Status: Never smoker - Alcohol History How Often Do You Have a Drink Containing Alcohol: Never - Substance Use History Substance History: No History of Abuse - Travel History Recent Travel in the [place] Within the Last 8 Weeks: No Recent Travel Out of the Country Within the Last 8 Weeks: No - Immunization History Tetanus Immunization: >5 Years Hx Influenza Vaccine This Season: No Medications and Allergies Active Medications: Active Medications Hydrocodone Bitart/Acetaminophen ([place] 10/325) 1 tab PO Q4H PRN PRN Reason: pain 2-10 Last Admin: 09/04/17 05:21 Dose: 1 tab Al Hydroxide/Mg Hydroxide (Milk Of Magntomy Liq) 30 ml PO Q12H PRN PRN Reason: Mild Constipation Albuterol (Duoneb Neb (Prn)) 1 ampul NEB Q4HR NEB PRN PRN Reason: SHORTNESS OF BREATH/WHEEZING Apixaban (Eliquis) 10 mg PO BID [facility] Stop: 09/09/17 08:59 Last Admin: 09/04/17 10:21 Dose: 10 mg Bupropion HCl (Wellbutrin Sr) 150 mg PO BID [facility] Last Admin: 09/04/17 10:21 Dose: 150 mg Clonazepam (Klonopin) 0.5 mg PO BID PRN PRN Reason: Anxiety Dicyclomine HCl (Bentyl) 10 mg PO QID PRN PRN Reason: Cramps Last Admin: 09/02/17 06:51 Dose: 10 mg Escitalopram Oxalate (Lexapro) 20 mg PO DAILY [facility] Last Admin: 09/04/17 10:21 Dose: 20 mg Levothyroxine Sodium (Synthroid) 112 mcg PO DAILY@0600 [facility] Last Admin: 09/04/17 05:21 Dose: 112 mcg Morphine Sulfate (Morphine Inj) 2 mg IV.PUSH Q4H PRN PRN Reason: breakthrough pain Last Admin: 09/01/17 18:42 Dose: 2 mg Pantoprazole Sodium (Protonix) 40 mg PO DAILY [facility] Last Admin: 09/04/17 10:21 Dose: 40 mg Pravastatin Sodium (Pravachol) 20 mg PO QPM [facility] Last Admin: 09/03/17 19:58 Dose: 20 mg Senna/Docusate Sodium (Debbie-Colace) 1 tab PO BID [facility] Last Admin: 09/04/17 10:21 Dose: 1 tab Sodium Chloride (Ns Flush) 2 ml IV.FLUSH BID [facility] Last Admin: 09/04/17 10:21 Dose: 2 ml Sodium Chloride (Ns Flush) 2 ml IV.FLUSH PRN PRN PRN Reason: FLUSH AFTER USING IV ACCESS Allergies Allergy/AdvReac Type Severity Reaction Status Date / Time prednisone Allergy Confusion Verified 09/01/17 09:15 Home Medications Medication Instructions Recorded Confirmed Type bupropion HCl [Wellbutrin XL] 300 mg PO QAM 09/01/17 09/01/17 History clonazepam 0.5 mg PO BID PRN 09/01/17 09/01/17 History dicyclomine 10 mg PO QID PRN 09/01/17 09/01/17 History escitalopram oxalate 20 mg PO DAILY 09/01/17 09/01/17 History levothyroxine 112 mcg PO DAILY 09/01/17 09/01/17 History pantoprazole 40 mg PO DAILY 09/01/17 09/01/17 History potassium chloride 10 meq PO DAILY 09/01/17 09/01/17 History simvastatin 10 mg PO QPM 09/01/17 09/01/17 History Physical Exam Vital Signs / I&O: Vital Signs 09/03/17 12:00 09/03/17 14:05 09/03/17 14:59 Temperature 97.0 F L Pulse Rate 64 Respiratory Rate 16 16 16 Blood Pressure 98/57 L Pulse Oximetry 94 L 09/03/17 16:00 09/03/17 20:00 09/03/17 22:18 Temperature 98.4 F 98.5 F Pulse Rate 63 62 Respiratory Rate 18 17 15 Blood Pressure 98/57 L 99/55 L Pulse Oximetry 95 96 09/03/17 23:36 09/04/17 00:00 09/04/17 01:00 Temperature 98.2 F Pulse Rate 65 72 Respiratory Rate 18 16 Blood Pressure 102/60 Pulse Oximetry 94 L 09/04/17 01:30 09/04/17 04:03 09/04/17 04:50 Temperature 98.8 F Pulse Rate 67 69 Respiratory Rate 15 18 Blood Pressure 99/59 L Pulse Oximetry 96 09/04/17 05:21 09/04/17 07:31 Temperature 98.2 F Pulse Rate 61 Respiratory Rate 15 16 Blood Pressure 97/58 L Pulse Oximetry 95 Intake & Output 09/03/17 09/04/17 09/04/17 18:59 06:59 18:59 Other: # Voids 1 2 Date of Last Bowel Movement 09/01/17 # Bowel Movements 1 Neuro: alert, oriented, no distress, [place] HEENT: NC/AT, anicteric sclera Neck: no JVD Heart: reg rate, no M Lungs: clear B Abdomen: nontender Vascular: L LE with marked edema foot to hip no skin ulcerations Laboratory Results - last 24 hr 09/01/17 09/01/17 09/04/17 15:06 15:06 08:56 WBC 6.7 RBC 3.93 L Hgb 12.1 Hct 35.6 MCV 90.4 MCH 30.8 MCHC 34.0 RDW 13.8 Plt Count 290 MPV 8.7 Neut % (Auto) 59.7 Lymph % (Auto) 25.8 [place] % (Auto) 9.4 H Eos % (Auto) 4.2 H Baso % (Auto) 0.9 Neut # (Auto) 4.0 Lymph # (Auto) 1.7 [place] # (Auto) 0.6 Eos # (Auto) 0.3 Baso # (Auto) 0.1 WBC Differential . Differential Comment Auto diff final Sodium Potassium Chloride Carbon Dioxide Anion Gap BUN Creatinine Estimated GFR Random Glucose Calcium Beta-2-GPI IgG Ab <9 Beta-2-GPI IgA Ab <9 Beta-2-GPI IgM Ab <9 Anti-Cardiolipin IgG Ab <9.4 Anti-Cardiolipin IgM Ab <9.4 09/04/17 08:56 WBC RBC Hgb Hct MCV MCH MCHC RDW Plt Count MPV Neut % (Auto) Lymph % (Auto) [place] % (Auto) Eos % (Auto) Baso % (Auto) Neut # (Auto) Lymph # (Auto) [place] # (Auto) Eos # (Auto) Baso # (Auto) WBC Differential Differential Comment Sodium 140 Potassium 3.8 Chloride 108 H Carbon Dioxide 21.6 Anion Gap 10 BUN 8 Creatinine 0.83 Estimated GFR 70 L Random Glucose 88 Calcium 8.4 L Beta-2-GPI IgG Ab Beta-2-GPI IgA Ab Beta-2-GPI IgM Ab Anti-Cardiolipin IgG Ab Anti-Cardiolipin IgM Ab CT of abdomen - not definitive but suggestive of May thurner (dilated L iliac vein draining into compressed IVC) Duplex - fem-pop DVT Assessment and Plan - Assessment (1) DVT (deep venous thrombosis) Code(s): I82.409 - Acute embolism and thrombosis of unspecified deep veins of unspecified lower extremity Status: Acute - Plan New, apparently unprovoked DVT 1. Anticoagulation as you are doing. 2. May benefit from lysis and possible iliac vein stenting. I consulted IR to schedule. Not emergent since no immediate limb threat and only symptom is swelling. 3. Please HALLIE wrap leg toes to groin for comfort. No contraindication with DVT. Amarjit Padilla MD FACS [employer] [facility] [phone]
[2017-09-04 15:52] LABS: Dil Russell Viper Venom Conf ( ND (NEGATIVE); Dil Russell Viper Venom Time M ND (CORRECTED); Lupus Anticoagulant PTT Screen 159 seconds (< OR = 40)
[2017-09-04] MEDS: Morphine Inj 4 MG/ML Vial IV.PUSH PRN (20:08)
[2017-09-05] MEDS: Levothyroxine 112 MCG Tablet PO SCH (05:07)
[2017-09-05 05:42] LABS: Calcium 8.2 mg/dL (8.5-10.1); Carbon Dioxide 24.3 meq/L (21.0-32.0); Potassium 3.6 meq/L (3.5-5.1)
--- NOTE | 2017-09-05 08:44 | P.PNIM ---
Subjective Interval history: still with pain/swelling left leg. Physical Exam Vital signs: Vital Signs 09/04/17 10:00 09/04/17 11:52 09/04/17 11:55 Temperature 98.1 F Pulse Rate 58 L 61 Respiratory Rate 16 18 Blood Pressure 100/60 Pulse Oximetry 97 09/04/17 16:00 09/04/17 20:00 09/05/17 00:00 Temperature 97.5 F L 98.5 F 97.8 F Pulse Rate 97 H 68 58 L Respiratory Rate 18 16 16 Blood Pressure 90/52 L 115/72 92/57 L Pulse Oximetry 97 96 96 09/05/17 00:19 09/05/17 04:00 09/05/17 05:09 Temperature 98 F Pulse Rate 55 L 53 L Respiratory Rate 16 Blood Pressure 95/58 L 98/63 L Pulse Oximetry 94 L Intake & Output 09/04/17 09/05/17 09/05/17 18:59 06:59 18:59 Intake Total 480 / 480 480 / 480 Balance 480 / 480 480 / 480 Intake: Oral 480 / 480 480 / 480 Other: # Voids 1 3 Date of Last Bowel Movement 09/04/17 09/04/17 # Bowel Movements 1 heart reg lung cta abd s/nt ext left leg swollen Results - Labs CBC & Chem 7: 09/04/17 08:56 09/05/17 04:57 Laboratory Results - last 24 hr 09/01/17 09/04/17 09/04/17 15:06 08:56 08:56 WBC 6.7 RBC 3.93 L Hgb 12.1 Hct 35.6 MCV 90.4 MCH 30.8 MCHC 34.0 RDW 13.8 Plt Count 290 MPV 8.7 Neut % (Auto) 59.7 Lymph % (Auto) 25.8 [place] % (Auto) 9.4 H Eos % (Auto) 4.2 H Baso % (Auto) 0.9 Neut # (Auto) 4.0 Lymph # (Auto) 1.7 [place] # (Auto) 0.6 Eos # (Auto) 0.3 Baso # (Auto) 0.1 WBC Differential . Differential Comment Auto diff final Thrombin Time ND Lupus Anticoagulant LA PTT Screen 159 H dRVVT Screen 34 LA dRVVT Confirm ND dRVVT Mix ND Hexagonal Phase Confirm Negative Sodium 140 Potassium 3.8 Chloride 108 H Carbon Dioxide 21.6 Anion Gap 10 BUN 8 Creatinine 0.83 Estimated GFR 70 L Random Glucose 88 Calcium 8.4 L 09/05/17 04:57 WBC RBC Hgb Hct MCV MCH MCHC RDW Plt Count MPV Neut % (Auto) Lymph % (Auto) [place] % (Auto) Eos % (Auto) Baso % (Auto) Neut # (Auto) Lymph # (Auto) [place] # (Auto) Eos # (Auto) Baso # (Auto) WBC Differential Differential Comment Thrombin Time Lupus Anticoagulant LA PTT Screen dRVVT Screen LA dRVVT Confirm dRVVT Mix Hexagonal Phase Confirm Sodium 143 Potassium 3.6 Chloride 109 H Carbon Dioxide 24.3 Anion Gap 10 BUN 12 Creatinine 0.91 Estimated GFR 63 L Random Glucose 94 Calcium 8.2 L Microbiology 09/01/17 14:52 Stool Cryptosporidium Antigen - Final Negative - No Cryptosporicium antigen detected In selected cases of patients with a history of immunosuppression or foreign travel, a full ova and parasites examination may be desired. Contact the microbiology lab if full workup is indicated and subit another specimen for testing. 09/01/17 14:52 Stool Giardia Antigen (CHRIS) - Final Negative - No Giardia Antigen detected In selected cases of patients with a history of immunosuppression or foreign travel, a full ova and parasites examination may be desired. Contact the microbiology lab if full workup is indicated and subit another specimen for testing. Assessment and Plan - Assessment (1) DVT (deep venous thrombosis) Code(s): I82.409 - Acute embolism and thrombosis of unspecified deep veins of unspecified lower extremity Status: Acute Plan: DVT LLE - Patient with two recent hospitalizations likely causing DVT, but patient is being followed by outpatient Oncology/Hematology Dr. Santiago for concern of "pre -lymphoma" - US LLE revealed: Extensive deep venous thrombosis - Pt was started on Heparin drip in the ER, and was transitioned to Eliquis on - Anti-cardiolipin antibody, Beta 2 glycoprotein abs, Lupus anticoagulant, prothrombin gene mutation (pending) - CTA chest: -No evidence of PE -Examination of the pulmonary vasculature demonstrates good filling of the main, lobar and segmental branches. There are no filling defects to suggest pulmonary embolism. Multiplanar reconstructions are also unremarkable. - The lungs are free of acute parenchymal opacity. No pulmonary nodules or pleural effusions are identified. Examination of the mediastinum demonstrates no abnormally enlarged lymph nodes by CT criteria. No axillary or hilar abnormalities are identified. Coronary artery calcifications are not present. - CT abd/pelvis : - Negative CT scan of the abdomen and pelvis. I do not see an etiology for the patient's abdominal pain and short of breath shortness of breath. -The lower lungs are clear. -There is no pericardial effusion -The liver is free of focal defects. Surgical clips gallbladder and the gallbladder fossa -The spleen and pancreas unremarkable -Adrenal glands appear normal -Right kidney: Symmetrical function without stone or mass -Left kidney: Symmetrical function without stone or mass -And no inflammatory changes in the abdomen. -There is no free fluid -In the pelvis there are minimal diverticuli in the sigmoid colon. There is no free fluid or free air. -Review of bone windows reveals mild degenerative changes about both SI joints. -There are moderate degenerative changes lower lumbar spine - Appreciate consult from Hematology. -Discussed with Dr Padilla Vascular. Consult IR for lysis attempt. IR can do it Friday morning but eliquis needs to be held Sat and Sun. Will start hep gtt Sat. Hypokalemia - Patient with chronic diarrhea for 6 months and poor PO intake - corrected. - Mag 2.2 - continuous Telemetry Recurrent hypotension and bradycardia - Concern and question regarding adrenal insufficiency - Cosyntropin stim test, cortisol level 4.0 before Cosyntropin then 45.8 after Cosyntropin - Continuous cardiac telemetry Hypothyroidism - Continue patient home Synthroid - TSH 1.640, Free T4 1.08 Sleep apnea - Patient may use home CPAP Asthma - DuoNeb as needed Chronic diarrhea, improving - Supportive care - C diff was negative - Stool ova and parasites is pending. - Stool culture was negative (2) Hypokalemia Code(s): E87.6 - Hypokalemia Status: Acute (3) Asthma Code(s): J45.909 - Unspecified asthma, uncomplicated Status: Chronic (4) Chronic diarrhea Code(s): K52.9 - Noninfective gastroenteritis and colitis, unspecified Status : Chronic (5) JENNIFER (obstructive sleep apnea) Code(s): G47.33 - Obstructive sleep apnea (adult) (pediatric) Status: Chronic
[2017-09-05] MEDS: buPROPion 150 MG 12 HR Tablet PO SCH ×2 (09:11→20:50)
[2017-09-05] MEDS: Senna/Docusate Sodium 8.6/50 MG Tablet PO SCH ×2 (09:15→20:50)
[2017-09-05] MEDS ORDERED: Psyllium Fiber SF/GF 6 GM Packet PO PRN ×2 (15:42→16:30)
--- NOTE | 2017-09-05 20:14 | P.PNONC ---
Subjective Interval history: Resting comfortably in bed. Objective Vital Signs/Intake & Output: Vital Signs 09/05/17 00:00 09/05/17 00:19 09/05/17 04:00 Temperature 97.8 F 98 F Pulse Rate 58 L 55 L 53 L Respiratory Rate 16 16 Blood Pressure 92/57 L 95/58 L Pulse Oximetry 96 94 L 09/05/17 05:09 09/05/17 08:00 09/05/17 10:23 Temperature 98.0 F Pulse Rate 60 Respiratory Rate 18 Blood Pressure 98/63 L 96/51 L Pulse Oximetry 99 09/05/17 12:00 09/05/17 14:59 09/05/17 16:00 Temperature 98.0 F 97.9 F Pulse Rate 66 61 Respiratory Rate 18 18 18 Blood Pressure 102/54 L 117/69 Pulse Oximetry 99 09/05/17 16:07 09/05/17 19:43 09/05/17 19:46 Temperature 98.5 F Pulse Rate 66 Respiratory Rate 18 18 18 Blood Pressure 124/48 L Pulse Oximetry 97 Intake & Output 09/05/17 09/05/17 09/06/17 06:59 18:59 06:59 Intake Total 480 / 480 480 / 480 Output Total 400 / 400 Balance 480 / 480 80 / 80 Intake: Oral 480 / 480 480 / 480 Output: Urine 400 / 400 Other: # Voids 3 Date of Last Bowel Movement 09/04/17 09/04/17 09/04/17 Result Diagrams: 09/04/17 08:56 09/05/17 04:57 Laboratory Results: Laboratory Results - last 24 hr 09/01/17 09/05/17 15:06 04:57 Thrombin Time ND Sodium 143 Potassium 3.6 Chloride 109 H Carbon Dioxide 24.3 Anion Gap 10 BUN 12 Creatinine 0.91 Estimated GFR 63 L Random Glucose 94 Calcium 8.2 L Culture Results: Microbiology 09/01/17 14:52 Cryptosporidium Antigen - Final Stool Negative - No Cryptosporicium antigen detected In selected cases of patients with a history of immunosuppression or foreign travel, a full ova and parasites examination may be desired. Contact the microbiology lab if full workup is indicated and subit another specimen for testing. Giardia Antigen (CHRIS) - Final Negative - No Giardia Antigen detected In selected cases of patients with a history of immunosuppression or foreign travel, a full ova and parasites examination may be desired. Contact the microbiology lab if full workup is indicated and subit another specimen for testing. Medications: Active Medications Generic Name Dose Route Start Last Admin Trade Name Freq PRN Reason Stop Dose Admin Hydrocodone Bitart/Acetaminophen 1 tab 09/03/17 14:00 09/05/17 19:43 [place] 10/325 PO 1 tab Q4H PRN Administration pain 2-10 Bupropion HCl 150 mg 09/01/17 21:00 09/05/17 09:11 Wellbutrin Sr PO 150 mg BID [facility] Administration Dicyclomine HCl 10 mg 09/01/17 13:28 09/02/17 06:51 Bentyl PO 10 mg QID PRN Administration Cramps Escitalopram Oxalate 20 mg 09/02/17 09:00 09/05/17 09:16 Lexapro PO 20 mg DAILY [facility] Administration Levothyroxine Sodium 112 mcg 09/02/17 06:00 09/05/17 05:07 Synthroid PO 112 mcg DAILY@0600 [facility] Administration Morphine Sulfate 2 mg 09/01/17 18:30 09/04/17 20:08 Morphine Inj IV.PUSH 2 mg Q4H PRN Administration breakthrough pain Pantoprazole Sodium 40 mg 09/02/17 09:00 09/05/17 09:15 Protonix PO 40 mg DAILY [facility] Administration Pravastatin Sodium 20 mg 09/01/17 18:00 09/04/17 17:05 Pravachol PO 20 mg QPM [facility] Administration Psyllium Hydrophilic Mucilloid 1 packet 09/05/17 16:30 09/05/17 16:54 Metamucil Smooth Texture Sf/Gf Pkt PO 1 packet DAILY PRN Administration CONSTIPATION Senna/Docusate Sodium 1 tab 09/03/17 21:00 09/05/17 09:15 Debbie-Colace PO 1 tab BID [facility] Administration Sodium Chloride 2 ml 09/01/17 21:00 09/05/17 10:50 Ns Flush IV.FLUSH Not Given BID [facility] Objective Remarks: GENERAL: Well-nourished, well-developed patient. SKIN: Warm and dry. HEAD: Normocephalic. EYES: No scleral icterus. No injection or drainage. NECK: Supple, trachea midline. No JVD or lymphadenopathy. LYMPHATIC: No adenopathy. CARDIOVASCULAR: Regular rate and rhythm without murmurs. RESPIRATORY: Breath sounds equal bilaterally. No accessory muscle use. GASTROINTESTINAL: Abdomen soft, non-tender, nondistended. EXTREMITIES: No cyanosis, or edema. MUSCULOSKELETAL: Adequate muscle tone. NEUROLOGICAL: No obvious focal deficit. Awake, alert, and oriented x3. PSYCHIATRIC: Appropriate mood and affect; insight and judgment normal. Assessment/Plan - Plan 1. Lower extremity VTE: Plan for IR thrombolytic procedure on Friday. On discharge will be sent home on [facility]. She will follow up with local [employer] Dr. Santiago.
[2017-09-06] MEDS: Levothyroxine 112 MCG Tablet PO SCH (06:50)
--- NOTE | 2017-09-06 08:31 | P.PNIM ---
Subjective Interval history: pt w/out new complaints. still some pains in left leg Physical Exam Vital signs: Vital Signs 09/05/17 10:23 09/05/17 12:00 09/05/17 14:59 Temperature 98.0 F Pulse Rate 60 66 Respiratory Rate 18 18 Blood Pressure 102/54 L Pulse Oximetry 09/05/17 16:00 09/05/17 16:07 09/05/17 19:00 Temperature 97.9 F Pulse Rate 61 73 Respiratory Rate 18 18 Blood Pressure 117/69 Pulse Oximetry 99 09/05/17 19:43 09/05/17 19:46 09/05/17 20:00 Temperature 98.5 F Pulse Rate 66 65 Respiratory Rate 18 18 Blood Pressure 124/48 L 102/63 Pulse Oximetry 97 97 09/05/17 20:50 09/06/17 00:00 09/06/17 04:00 Temperature 98.7 F 98.1 F Pulse Rate 55 L 50 L Respiratory Rate 18 18 16 Blood Pressure 108/66 88/56 L Pulse Oximetry 98 95 Intake & Output 09/05/17 09/06/17 09/06/17 18:59 06:59 18:59 Intake Total 480 / 480 240 / 240 Output Total 400 / 400 Balance 80 / 80 240 / 240 Intake: Oral 480 / 480 240 / 240 Output: Urine 400 / 400 Other: # Voids 1 Date of Last Bowel Movement 09/04/17 09/04/17 heart reg lung cta abd s/nt ext left swelling from hip/thigh and distal distal pulses intact Results - Labs CBC & Chem 7: 09/04/17 08:56 09/05/17 04:57 Laboratory Results - last 24 hr 09/01/17 15:06 Thrombin Time ND Assessment and Plan - Assessment (1) DVT (deep venous thrombosis) Code(s): I82.409 - Acute embolism and thrombosis of unspecified deep veins of unspecified lower extremity Status: Acute Plan: DVT LLE - Patient with two recent hospitalizations likely causing DVT, but patient is being followed by outpatient Oncology/Hematology Dr. Santiago for concern of "pre -lymphoma" - US LLE revealed: Extensive deep venous thrombosis - Pt was started on Heparin drip in the ER, and was transitioned to Eliquis on - Anti-cardiolipin antibody, Beta 2 glycoprotein abs, Lupus anticoagulant, prothrombin gene mutation (pending) - CTA chest: -No evidence of PE -Examination of the pulmonary vasculature demonstrates good filling of the main, lobar and segmental branches. There are no filling defects to suggest pulmonary embolism. Multiplanar reconstructions are also unremarkable. - The lungs are free of acute parenchymal opacity. No pulmonary nodules or pleural effusions are identified. Examination of the mediastinum demonstrates no abnormally enlarged lymph nodes by CT criteria. No axillary or hilar abnormalities are identified. Coronary artery calcifications are not present. - CT abd/pelvis : - Negative CT scan of the abdomen and pelvis. I do not see an etiology for the patient's abdominal pain and short of breath shortness of breath. -The lower lungs are clear. -There is no pericardial effusion -The liver is free of focal defects. Surgical clips gallbladder and the gallbladder fossa -The spleen and pancreas unremarkable -Adrenal glands appear normal -Right kidney: Symmetrical function without stone or mass -Left kidney: Symmetrical function without stone or mass -And no inflammatory changes in the abdomen. -There is no free fluid -In the pelvis there are minimal diverticuli in the sigmoid colon. There is no free fluid or free air. -Review of bone windows reveals mild degenerative changes about both SI joints. -There are moderate degenerative changes lower lumbar spine - Appreciate consult from Hematology. -Discussed with Dr Padilla Vascular. Consult IR for lysis attempt. IR can do it Friday morning but eliquis needs to be held Sat and Sun. Will start hep gtt today. Hypokalemia - Patient with chronic diarrhea for 6 months and poor PO intake - corrected. - Mag 2.2 - continuous Telemetry Recurrent hypotension and bradycardia - Concern and question regarding adrenal insufficiency - Cosyntropin stim test, cortisol level 4.0 before Cosyntropin then 45.8 after Cosyntropin - Continuous cardiac telemetry Hypothyroidism - Continue patient home Synthroid - TSH 1.640, Free T4 1.08 Sleep apnea - Patient may use home CPAP Asthma - DuoNeb as needed Chronic diarrhea, improving - Supportive care - C diff was negative - Stool ova and parasites is pending. - Stool culture was negative (2) Hypokalemia Code(s): E87.6 - Hypokalemia Status: Acute (3) Asthma Code(s): J45.909 - Unspecified asthma, uncomplicated Status: Chronic (4) Chronic diarrhea Code(s): K52.9 - Noninfective gastroenteritis and colitis, unspecified Status : Chronic (5) JENNIFER (obstructive sleep apnea) Code(s): G47.33 - Obstructive sleep apnea (adult) (pediatric) Status: Chronic
[2017-09-06] MEDS: Senna/Docusate Sodium 8.6/50 MG Tablet PO SCH ×2 (08:51→20:12)
[2017-09-06] MEDS: buPROPion 150 MG 12 HR Tablet PO SCH ×2 (08:51→20:12)
[2017-09-06] MEDS: Morphine Inj 4 MG/ML Vial IV.PUSH PRN ×2 (12:17→20:11)
[2017-09-06] MEDS: Heparin Drip 25,000 UNIT/250 ML BAG IV.CONT PRN (14:31)
[2017-09-06 15:32] LABS: Hematocrit 35.2 % (35.0-46.0); Hemoglobin 11.9 gm/dL (11.6-15.3); Mean Corpuscular HGB Conc 33.9 % (32.0-36.0); Mean Corpuscular Hemoglobin 30.9 pg (27.0-34.0); Mean Corpuscular Volume 91.1 fL (80.0-100.0); Mean Platelet Volume 8.5 fL (7.0-11.0); Platelet Count 354 th/mm3 (150-450); Red Blood Count 3.86 mil/mm3 (4.00-5.30); Red Cell Distribution Width 13.3 % (11.6-17.2); White Blood Count 5.7 th/mm3 (4.0-11.0)
[2017-09-06 15:39] LABS: Activated Partial Thrombo Time 26.9 sec (24.3-30.1); Prothrombin Time 10.5 sec (9.8-11.6)
[2017-09-06] MEDS: clonazePAM 0.5 MG Tablet PO PRN (23:35)
[2017-09-07] MEDS: Morphine Inj 4 MG/ML Vial IV.PUSH PRN ×4 (01:25→23:02)
[2017-09-07 04:46] LABS: Hemoglobin 11.6 gm/dL (11.6-15.3); Mean Corpuscular HGB Conc 33.3 % (32.0-36.0); Mean Corpuscular Hemoglobin 30.4 pg (27.0-34.0); Mean Corpuscular Volume 91.3 fL (80.0-100.0); Mean Platelet Volume 8.6 fL (7.0-11.0); Platelet Count 316 th/mm3 (150-450); Red Blood Count 3.83 mil/mm3 (4.00-5.30); Red Cell Distribution Width 13.8 % (11.6-17.2); White Blood Count 6.4 th/mm3 (4.0-11.0)
[2017-09-07] MEDS: Levothyroxine 112 MCG Tablet PO SCH (05:03)
[2017-09-07] MEDS: Heparin Drip 25,000 UNIT/250 ML BAG IV.CONT PRN ×2 (05:05→23:40)
--- NOTE | 2017-09-07 08:16 | P.PNIM ---
Subjective Interval history: pt looks comfortable. Physical Exam Vital signs: Vital Signs 09/06/17 08:51 09/06/17 09:29 09/06/17 09:57 Temperature 97.7 F Pulse Rate 98 H Respiratory Rate 18 16 18 Blood Pressure 112/70 Pulse Oximetry 98 09/06/17 11:00 09/06/17 12:19 09/06/17 14:32 Temperature 97.8 F Pulse Rate 57 L Respiratory Rate 16 16 16 Blood Pressure 98/64 L Pulse Oximetry 96 09/06/17 14:44 09/06/17 20:00 09/07/17 00:00 Temperature 98.0 F 98.2 F 98.2 F Pulse Rate 62 64 52 L Respiratory Rate 16 18 Blood Pressure 116/66 127/69 111/53 L Pulse Oximetry 96 96 95 09/07/17 04:00 09/07/17 07:00 Temperature 97.9 F Pulse Rate 52 L 52 L Respiratory Rate 16 Blood Pressure 100/62 Pulse Oximetry 99 Intake & Output 09/06/17 09/07/17 09/07/17 18:59 06:59 18:59 Intake Total 600 / 600 730 / 730 Output Total 700 / 700 Balance 600 / 600 30 / 30 Intake: IV 250 / 250 Heparin/D5W 25,000 U/250 mL 25, 250 / 250 000 unit In 250 ml @ 1,300 UNITS/HR 13 mls/hr IV.CONT TITRATE PRN Rx#:[id number] Oral 600 / 600 480 / 480 Output: Urine 700 / 700 Other: # Voids 3 Date of Last Bowel Movement 09/05/17 09/06/17 # Bowel Movements 0 1 heart reg lung cta abd s/nt ext left leg swelling/conor wrapped today Results - Labs CBC & Chem 7: 09/07/17 04:14 09/05/17 04:57 Laboratory Results - last 24 hr 09/01/17 09/06/17 09/06/17 15:06 14:58 14:58 WBC 5.7 RBC 3.86 L Hgb 11.9 Hct 35.2 MCV 91.1 MCH 30.9 MCHC 33.9 RDW 13.3 Plt Count 354 MPV 8.5 PT 10.5 INR 1.0 APTT 26.9 Prothrombin [id number] Mut 07/14/18 07/15/18 07/15/18 21:58 04:14 04:14 WBC 6.4 RBC 3.83 L Hgb 11.6 Hct 35.0 MCV 91.3 MCH 30.4 MCHC 33.3 RDW 13.8 Plt Count 316 MPV 8.6 PT INR APTT 44.1 H D 54.6 H D Prothrombin [id number] Mut Assessment and Plan - Assessment (1) DVT (deep venous thrombosis) Code(s): I82.409 - Acute embolism and thrombosis of unspecified deep veins of unspecified lower extremity Status: Acute Plan: DVT LLE - Patient with two recent hospitalizations likely causing DVT, but patient is being followed by outpatient Oncology/Hematology Dr. Santiago for concern of "pre -lymphoma" - US LLE revealed: Extensive deep venous thrombosis - Pt was started on Heparin drip in the ER, and was transitioned to Eliquis on - Anti-cardiolipin antibody, Beta 2 glycoprotein abs, Lupus anticoagulant, prothrombin gene mutation (pending) - CTA chest: -No evidence of PE -Examination of the pulmonary vasculature demonstrates good filling of the main, lobar and segmental branches. There are no filling defects to suggest pulmonary embolism. Multiplanar reconstructions are also unremarkable. - The lungs are free of acute parenchymal opacity. No pulmonary nodules or pleural effusions are identified. Examination of the mediastinum demonstrates no abnormally enlarged lymph nodes by CT criteria. No axillary or hilar abnormalities are identified. Coronary artery calcifications are not present. - CT abd/pelvis : - Negative CT scan of the abdomen and pelvis. I do not see an etiology for the patient's abdominal pain and short of breath shortness of breath. -The lower lungs are clear. -There is no pericardial effusion -The liver is free of focal defects. Surgical clips gallbladder and the gallbladder fossa -The spleen and pancreas unremarkable -Adrenal glands appear normal -Right kidney: Symmetrical function without stone or mass -Left kidney: Symmetrical function without stone or mass -And no inflammatory changes in the abdomen. -There is no free fluid -In the pelvis there are minimal diverticuli in the sigmoid colon. There is no free fluid or free air. -Review of bone windows reveals mild degenerative changes about both SI joints. -There are moderate degenerative changes lower lumbar spine - Appreciate consult from Hematology. -Discussed with Dr Padilla Vascular. Consult IR for lysis attempt. IR can do it Friday morning but eliquis needs to be held Sat and Sun. heparin gtt started and will hold tomorrow morning prior to the procedure. npo after MN Hypokalemia - Patient with chronic diarrhea for 6 months and poor PO intake - corrected. - Mag 2.2 - continuous Telemetry Recurrent hypotension and bradycardia - Concern and question regarding adrenal insufficiency - Cosyntropin stim test, cortisol level 4.0 before Cosyntropin then 45.8 after Cosyntropin - Continuous cardiac telemetry Hypothyroidism - Continue patient home Synthroid - TSH 1.640, Free T4 1.08 Sleep apnea - Patient may use home CPAP Asthma - DuoNeb as needed Chronic diarrhea, improving - Supportive care - C diff was negative - Stool ova and parasites is pending. - Stool culture was negative (2) Hypokalemia Code(s): E87.6 - Hypokalemia Status: Acute (3) Asthma Code(s): J45.909 - Unspecified asthma, uncomplicated Status: Chronic (4) Chronic diarrhea Code(s): K52.9 - Noninfective gastroenteritis and colitis, unspecified Status : Chronic (5) JENNIFER (obstructive sleep apnea) Code(s): G47.33 - Obstructive sleep apnea (adult) (pediatric) Status: Chronic
[2017-09-07] MEDS: Senna/Docusate Sodium 8.6/50 MG Tablet PO SCH ×2 (09:44→20:47)
[2017-09-07] MEDS: buPROPion 150 MG 12 HR Tablet PO SCH ×2 (09:49→20:47)
[2017-09-07] MEDS: clonazePAM 0.5 MG Tablet PO PRN (23:46)
[2017-09-08] MEDS: Levothyroxine 112 MCG Tablet PO SCH (05:42)
[2017-09-08 07:59] LABS: Hemoglobin 11.8 gm/dL (11.6-15.3); Mean Corpuscular HGB Conc 33.7 % (32.0-36.0); Mean Corpuscular Hemoglobin 30.5 pg (27.0-34.0); Mean Corpuscular Volume 90.6 fL (80.0-100.0); Platelet Count 360 th/mm3 (150-450); Red Blood Count 3.86 mil/mm3 (4.00-5.30); Red Cell Distribution Width 13.5 % (11.6-17.2); White Blood Count 5.4 th/mm3 (4.0-11.0)
[2017-09-08] MEDS: Senna/Docusate Sodium 8.6/50 MG Tablet PO SCH ×2 (08:03→20:28)
[2017-09-08] MEDS: buPROPion 150 MG 12 HR Tablet PO SCH ×2 (08:03→20:28)
[2017-09-08 08:16] LABS: Calcium 8.6 mg/dL (8.5-10.1); Carbon Dioxide 26.8 meq/L (21.0-32.0); Potassium 4.2 meq/L (3.5-5.1)
[2017-09-08] MEDS ORDERED: fentaNYL Citrate Inj 250 MCG/5 ML Ampul ONE (09:33)
[2017-09-08] MEDS ORDERED: Thrombin Topical Soln 5,000 UNIT Vial TOPICAL ONE (10:35)
[2017-09-08] MEDS: Cathflo Activase Inj 10 MG in Sodium Chlor 0.9% Inj 500 ML I-CATHETER PRN ×3 (12:30→23:57)
[2017-09-08] MEDS: Heparin Drip 25,000 UNIT/250 ML BAG IV.CONT SCH (12:45)
--- NOTE | 2017-09-08 14:02 | P.RAD ---
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 Vascular - Venous Procedure left Leg Procedure(s): Thrombolysis right Abdominal Procedure(s): Retrievable IVC Filter - Additional Information Findings: Extensive LLE DVT. Temporary IVC filter placed prior to thrombolysis. Probable May-Thurner
[2017-09-08] MEDS: Morphine Inj 4 MG/ML Vial IV.PUSH PRN ×6 (14:12→23:57)
[2017-09-08] MEDS ORDERED: Morphine Inj 4 MG/ML Vial IV.PUSH PRN (14:37)
[2017-09-08] MEDS ORDERED: Iohexol 350 MG/ML 50 ML Vial (for Rad Diag) IVCONTRAST ONE (14:54)
--- NOTE | 2017-09-08 15:23 | IR ---
EXAM DATE: 09/08/2017 2:50 PM EDT AGE/SEX: 57 years / Female INDICATIONS: Patient with DVT. Left leg pain. TPA of left leg pain. CLINICAL DATA: This is the patient's initial encounter. Patient reports that signs and symptoms have been present for 4 - 6 days and indicates a pain score of 5/10. MEDICAL/SURGICAL HISTORY: Hypertension. Asthma. Hypothyroidism. chronic diarrhea. Hysterect jenni. Cholecystectomy. bone marrow biopsy. COMPARISON: No prior exams available for comparison. FLUORO TIME (min): 3.4 IMAGE SERIES: 8 ACCESS SITE: Left popliteal vein CONTRAST (cc): 105 cc Omnipaque (iohexol) 350 MEDICATION(S): 5 mg midazolam (Versed) IV 2250 mcg fentanyl (Sublimaze) IV DEVICE(S): Left popliteal vein EV3 Infusion catheter 50 cm 100 cm shaft . . PROCEDURE : 1. Ultrasound-guided venipuncture. 2. Venogram. The risks, benefits and alternatives to the procedure were explained and verbal and written consent w as obtained. The site was prepped in sterile fashion. Full sterile technique was used, including ca p, mask, sterile gloves and gown and a large sterile sheet. Hand hygiene and 2% chlorhexidine and/or betadine/alcohol prep was utilized per protocol for cutaneous antisepsis. Sterile gel and sterile p robe cover were utilized for ultrasound guidance. The skin and subcutaneous tissues were infiltrated with local anesthetic solution. With ultrasound guidance, the left popliteal vein was accessed. The 018 wire was advanced through the needle to facilitate placement of the 3-4 dilator. [place] wire and hockey-stick catheter easily trave rsed the deep venous system of the left lower extremity but I had significant difficulty crossing the common iliac vein into the IVC. Contrast injection showed extensive thrombosis within apparent focal narrowing characteristic of May Thurner. Was eventually able to cross the area of occlusion with a h ockey-stick catheter and Roadrunner wire. Contrast injection confirmed catheter tip in the patent IVC within the region of the temporary IVC filter. Pullback venogram with a 5 Mongolian Ovidio sheath over the Glidewire showed extensive thrombosis througho ut the left lower extremity deep venous system extending up into the iliac. Therefore, a 50 cm infusi on catheter was advanced across the entire occluded deep venous system. 2 mg of TPA were infused into the thrombosis and an infusion initiated at 2 mg per hour. CONCLUSION: 1. Uncomplicated venogram as above. 2. Extensive DVT throughout the left lower extremity extending up into the left iliac venous system. High-grade stenosis in the central common iliac vein characteristic of a May Thurner syndrome. 3. TPA will be infused overnight. Reevaluation tomorrow late morning/early afternoon. If there is rowe fficient clearing, could consider stenting the central left common iliac at that time. Electronically signed by: Jeferson Interiano MD 09/08/2017 3:22 PM EDT
--- NOTE | 2017-09-08 15:41 | IR ---
EXAM DATE: 09/08/2017 2:51 PM EDT AGE/SEX: 57 years / Female INDICATIONS: Patient with history of DVT. Left leg swelling. CLINICAL DATA: This is the patient's initial encounter. Patient reports that signs and symptoms have been present for 4 - 6 days and indicates a pain score of 5/10. MEDICAL/SURGICAL HISTORY: Hypertension. Asthma. chronic diarrhea. Hysterectomy. Cholecystect jenni. bone marrow biopsy COMPARISON: [facility] – [place], CT ABDOMEN & PELVIS W CONTRAST, 09/01/2017. . FLUORO TIME (min): 3.4 IMAGE SERIES: 4 ACCESS SITE: Right internal jugular vein SEDATION TIME (min): 105 CONTRAST (cc): 60 Omnipaque (iohexol) 350 MEDICATION(S): 5 mg midazolam (Versed) IV 250 mcg fentanyl (Sublimaze) IV DEVICE(S): Right mica vena cava filter jugular . . PROCEDURE: 1. Ultrasound-guided venipuncture. 2. Inferior venacavogram.retrieval. 4. Conscious sedation with continuous EKG and oximetry monitoring. The risks, benefits and alternatives to the procedure were explained and verbal and written consent w as obtained. The site was prepped in sterile fashion. Full sterile technique was used, including ca p, mask, sterile gloves and gown and a large sterile sheet. Hand hygiene and 2% chlorhexidine and/or betadine/alcohol prep was utilized per protocol for cutaneous antisepsis. Sterile gel and sterile p robe cover were utilized for ultrasound guidance. The skin and subcutaneous tissues were infiltrated with local anesthetic solution. With ultrasound and fluoroscopic guidance the targeted vein was punctured and a vascular sheath was p laced. Inferior venacavogram was performed. Filter was deployed with the apex at the L2-3 disc inter space. Conscious sedation was performed with the prescribed dosages and duration as above in the presence of an independent trained radiology nurse to assist in the monitoring of the patient. EKG and oximetry remained stable throughout the procedure. The patient tolerated the procedure well and there were n o complications. The patient was sent to post anesthesia recovery in stable condition. CONCLUSION: 1. Uncomplicated inferior vena cava filter retrieval as above. Electronically signed by: Jeferson Interiano MD 09/08/2017 3:39 PM EDT
--- NOTE | 2017-09-08 15:49 | IR ---
EXAM DATE: 09/08/2017 2:51 PM EDT AGE/SEX: 57 years / Female INDICATIONS: patient with DVT. Getting central line for access. Patient receiving TPA. CLINICAL DATA: This is the patient's initial encounter. Patient reports that signs and symptoms have been present for 4 - 6 days and indicates a pain score of 5/10. MEDICAL/SURGICAL HISTORY: Hypertension. Asthma. Hypothyroidism. chronic diarrhea, sleep apne a Hysterectomy. Cholecystectomy. bone marrow biopsy. COMPARISON: No prior exams available for comparison. FLUORO TIME (min): 3.4 IMAGE SERIES: ACCESS SITE: Right internal jugular vein SEDATION TIME (min): 105 MEDICATION(S): 5 mg midazolam (Versed) IV 250 mcg fentanyl (Sublimaze) IV DEVICE(S): 7 Martiniquais triple lumen 16 cm Arrow central line . . PROCEDURE : 1. Ultrasound guided venipuncture. 2. Fluoroscopic guidance. 3. Central line placement. The risks, benefits and alternatives to the procedure were explained and verbal and written consent w as obtained. The site was prepped in sterile fashion. Full sterile technique was used, including ca p, mask, sterile gloves and gown and a large sterile sheet. Hand hygiene and 2% chlorhexidine prep w as utilized per protocol for cutaneous antisepsis with appropriate dry time for site. Sterile gel an d sterile probe cover were utilized for ultrasound guidance. The skin and subcutaneous tissues were infiltrated with local anesthetic solution. A suitable site a misael the vein was selected with ultrasound and fluoroscopic guidance. A small incision was made. Th e vein was accessed under direct ultrasound visualization using the micropuncture technique. The kate ropuncture set was exchanged for a 0.035 wire. The tract was dilated. The catheter was advanced int o position under direct fluoroscopic visualization, and was advanced with the tip at the junction of the superior vena cava and rt atrium. The catheter was fixed in place with suture and a sterile dres sing was applied. The patient tolerated the procedure well and there were no complications. CONCLUSION: 1. Uncomplicated line placement as above. Please note this was done in conjunction with IVC filter p lacement. Electronically signed by: Jeferson Interiano MD 09/08/2017 3:47 PM EDT
--- NOTE | 2017-09-08 16:08 | P.PNIM ---
Subjective Interval history: No new complaints. Pt is comfortable. Physical Exam Vital signs: Vital Signs 09/07/17 16:49 09/07/17 18:59 09/07/17 20:00 Temperature 98.5 F Pulse Rate 60 Respiratory Rate 18 6 L 16 Blood Pressure 104/65 Pulse Oximetry 97 09/08/17 00:00 09/08/17 04:00 09/08/17 07:48 Temperature 98 F 97.9 F 98.3 F Pulse Rate 65 65 58 L Respiratory Rate 16 16 20 Blood Pressure 101/60 92/52 L 105/67 Pulse Oximetry 95 100 99 09/08/17 08:00 09/08/17 08:02 09/08/17 13:00 Temperature 98.8 F Pulse Rate 54 L 54 L Respiratory Rate 20 20 Blood Pressure 118/74 Pulse Oximetry 92 L Intake & Output 09/07/17 09/08/17 09/08/17 18:59 06:59 18:59 Intake Total 1430 / 1430 666 / 666 Output Total 400 / 400 Balance 1430 / 1430 266 / 266 Intake: IV 306 / 306 Heparin/D5W 25,000 U/250 mL 25, 306 / 306 000 unit In 250 ml @ 1,300 UNITS/HR 13 mls/hr IV.CONT TITRATE PRN Rx#:[id number] Oral 1430 / 1430 360 / 360 Output: Urine 400 / 400 Other: Date of Last Bowel Movement 09/06/17 09/07/17 Narrative: GENERAL: This is a well-nourished, well-developed patient, in no apparent distress. CARDIOVASCULAR: Regular RESPIRATORY: CTA bilaterally. GASTROINTESTINAL: +BS, soft, nontender, nondistended. MUSCULOSKELETAL: LLE edema from upper thigh to ankle Results - Labs CBC & Chem 7: 09/08/17 07:36 09/08/17 07:36 Laboratory Results - last 24 hr 09/08/17 09/08/17 09/08/17 07:36 07:36 07:36 WBC 5.4 RBC 3.86 L Hgb 11.8 Hct 35.0 MCV 90.6 MCH 30.5 MCHC 33.7 RDW 13.5 Plt Count 360 MPV 8.0 APTT 24.5 D Sodium 143 Potassium 4.2 Chloride 108 H Carbon Dioxide 26.8 Anion Gap 8 BUN 8 Creatinine 0.98 Estimated GFR 58 L Random Glucose 82 Calcium 8.6 Microbiology 09/07/17 22:45 Stool Stool Occult Blood (CHRIS) - Final Hemoccult negative - Imaging Impressions Extremity Venous Study 09/08/17 00:00 CONCLUSION: 1. Uncomplicated venogram as above. 2. Extensive DVT throughout the left lower extremity extending up into the left iliac venous system. High-grade stenosis in the central common iliac vein characteristic of a May Thurner syndrome. 3. TPA will be infused overnight. Reevaluation tomorrow late morning/early afternoon. If there is sufficient clearing, could consider stenting the central left common iliac at that time. Central Venous Line 09/08/17 09:34 CONCLUSION: 1. Uncomplicated line placement as above. Please note this was done in conjunction with IVC filter placement. IVC Filter Removal 09/08/17 09:34 CONCLUSION: 1. Uncomplicated inferior vena cava filter retrieval as above. Assessment and Plan - Assessment (1) DVT (deep venous thrombosis) Code(s): I82.409 - Acute embolism and thrombosis of unspecified deep veins of unspecified lower extremity Status: Acute Plan: DVT LLE - Patient with two recent hospitalizations likely causing DVT, but patient is being followed by outpatient Oncology/Hematology Dr. Santiago for concern of "pre -lymphoma" - US LLE revealed: Extensive deep venous thrombosis - Pt was started on Heparin drip in the ER, and was transitioned to Eliquis on - Anti-cardiolipin antibody, Beta 2 glycoprotein abs, Lupus anticoagulant, prothrombin gene mutation (pending) - CTA chest: -No evidence of PE -Examination of the pulmonary vasculature demonstrates good filling of the main, lobar and segmental branches. There are no filling defects to suggest pulmonary embolism. Multiplanar reconstructions are also unremarkable. - The lungs are free of acute parenchymal opacity. No pulmonary nodules or pleural effusions are identified. Examination of the mediastinum demonstrates no abnormally enlarged lymph nodes by CT criteria. No axillary or hilar abnormalities are identified. Coronary artery calcifications are not present. - CT abd/pelvis : - Negative CT scan of the abdomen and pelvis. I do not see an etiology for the patient's abdominal pain and short of breath shortness of breath. -The lower lungs are clear. -There is no pericardial effusion -The liver is free of focal defects. Surgical clips gallbladder and the gallbladder fossa -The spleen and pancreas unremarkable -Adrenal glands appear normal -Right kidney: Symmetrical function without stone or mass -Left kidney: Symmetrical function without stone or mass -And no inflammatory changes in the abdomen. -There is no free fluid -In the pelvis there are minimal diverticuli in the sigmoid colon. There is no free fluid or free air. -Review of bone windows reveals mild degenerative changes about both SI joints. -There are moderate degenerative changes lower lumbar spine - Appreciate consult from Hematology. -Case discussed between Dr. Khanna and Vascular Surgeon Dr Padilla Vascular. - Pt underwent revascularization procedure (09/08) with IR, Dr. Interiano - placement of retreivable IVC filter - clot thrombolysis with TPA - heparin/TPA drip overnight - Pt will have repeat angiogram and possible further tPA 09/09 - Case d/w Dr. Interiano (09/08/17) - Possible May Thurner syndrome - supportive care. Hypokalemia - Patient with chronic diarrhea for 6 months and poor PO intake - corrected. - Mag 2.2 - continuous Telemetry Recurrent hypotension and bradycardia - Concern and question regarding adrenal insufficiency - Cosyntropin stim test, cortisol level 4.0 before Cosyntropin then 45.8 after Cosyntropin - Continuous cardiac telemetry Hypothyroidism - Continue patient home Synthroid - TSH 1.640, Free T4 1.08 Sleep apnea - Patient may use home CPAP Asthma - DuoNeb as needed Chronic diarrhea, improving - Supportive care - C diff was negative - Stool ova and parasites is pending. - Stool culture was negative (2) Hypokalemia Code(s): E87.6 - Hypokalemia Status: Acute (3) Asthma Code(s): J45.909 - Unspecified asthma, uncomplicated Status: Chronic (4) Chronic diarrhea Code(s): K52.9 - Noninfective gastroenteritis and colitis, unspecified Status : Chronic (5) JENNIFER (obstructive sleep apnea) Code(s): G47.33 - Obstructive sleep apnea (adult) (pediatric) Status: Chronic
[2017-09-08 19:58] LABS: Baso # (Auto) 0.1 th/mm3 (0.0-0.2); Baso % (Auto) 0.8 % (0.0-2.0); Eos # (Auto) 0.2 th/mm3 (0.0-0.4); Eos % (Auto) 3.2 % (0.0-4.0); Hematocrit 35.5 % (35.0-46.0); Hemoglobin 11.8 gm/dL (11.6-15.3); Lymph # (Auto) 1.1 th/mm3 (1.0-4.8); Mean Corpuscular HGB Conc 33.3 % (32.0-36.0); Mean Corpuscular Hemoglobin 30.4 pg (27.0-34.0); Mean Corpuscular Volume 91.4 fL (80.0-100.0); Mean Platelet Volume 7.7 fL (7.0-11.0); Mono # (Auto) 0.6 th/mm3 (0.0-0.9); Mono % (Auto) 8.3 % (0.0-8.0); Neut # (Auto) 5.1 th/mm3 (1.8-7.7); Neut % (Auto) 72.7 % (16.0-70.0); Platelet Count 301 th/mm3 (150-450); Red Blood Count 3.88 mil/mm3 (4.00-5.30); Red Cell Distribution Width 13.2 % (11.6-17.2)
[2017-09-08 20:30] LABS: Activated Partial Thrombo Time 34.6 sec (24.3-30.1)
[2017-09-08] MEDS: clonazePAM 0.5 MG Tablet PO PRN (22:53)
[2017-09-09 01:40] LABS: Baso # (Auto) 0.1 th/mm3 (0.0-0.2); Eos # (Auto) 0.3 th/mm3 (0.0-0.4); Eos % (Auto) 4.3 % (0.0-4.0); Hematocrit 34.3 % (35.0-46.0); Hemoglobin 11.5 gm/dL (11.6-15.3); Lymph # (Auto) 1.5 th/mm3 (1.0-4.8); Lymph % (Auto) 22.8 % (9.0-44.0); Mean Corpuscular HGB Conc 33.4 % (32.0-36.0); Mean Corpuscular Hemoglobin 30.6 pg (27.0-34.0); Mean Corpuscular Volume 91.6 fL (80.0-100.0); Mean Platelet Volume 7.9 fL (7.0-11.0); Mono # (Auto) 0.6 th/mm3 (0.0-0.9); Mono % (Auto) 8.7 % (0.0-8.0); Neut # (Auto) 4.1 th/mm3 (1.8-7.7); Neut % (Auto) 63.2 % (16.0-70.0); Platelet Count 291 th/mm3 (150-450); Red Blood Count 3.75 mil/mm3 (4.00-5.30); Red Cell Distribution Width 12.8 % (11.6-17.2); White Blood Count 6.5 th/mm3 (4.0-11.0)
[2017-09-09 02:10] LABS: Activated Partial Thrombo Time 37.1 sec (24.3-30.1)
[2017-09-09] MEDS: Heparin/NS PF Inj 500 ML IV.SIG PRN ×2 (03:55→17:34)
[2017-09-09] MEDS: Morphine Inj 4 MG/ML Vial IV.PUSH PRN ×4 (04:27→22:07)
[2017-09-09] MEDS: Levothyroxine 112 MCG Tablet PO SCH (06:18)
[2017-09-09] MEDS ORDERED: fentaNYL Citrate Inj 250 MCG/5 ML Ampul ONE (07:36)
[2017-09-09 08:44] LABS: Baso # (Auto) 0.1 th/mm3 (0.0-0.2); Baso % (Auto) 0.9 % (0.0-2.0); Eos # (Auto) 0.3 th/mm3 (0.0-0.4); Eos % (Auto) 5.4 % (0.0-4.0); Hemoglobin 11.2 gm/dL (11.6-15.3); Lymph # (Auto) 1.4 th/mm3 (1.0-4.8); Lymph % (Auto) 24.4 % (9.0-44.0); Mean Corpuscular HGB Conc 33.9 % (32.0-36.0); Mean Corpuscular Hemoglobin 30.8 pg (27.0-34.0); Mean Corpuscular Volume 90.9 fL (80.0-100.0); Mono # (Auto) 0.6 th/mm3 (0.0-0.9); Mono % (Auto) 9.8 % (0.0-8.0); Neut # (Auto) 3.5 th/mm3 (1.8-7.7); Neut % (Auto) 59.5 % (16.0-70.0); Platelet Count 263 th/mm3 (150-450); Red Blood Count 3.63 mil/mm3 (4.00-5.30); Red Cell Distribution Width 13.2 % (11.6-17.2); White Blood Count 5.9 th/mm3 (4.0-11.0)
[2017-09-09] MEDS ORDERED: *Heparin 10,000 UNITS/10 ML Vial Periprocedural ONLY ONE (10:26)
[2017-09-09] MEDS ORDERED: Cathflo Activase Inj 2 MG Vial ONE (11:40)
[2017-09-09] MEDS ORDERED: fentaNYL Citrate Inj 100 MCG/2 ML Ampul ONE ×2 (12:04→13:25)
[2017-09-09] MEDS ORDERED: ceFAZolin 2 GM Premix Inj 2 GM/50 ML PIGGYBACK IV.SIG ONE (13:40)
[2017-09-09] MEDS ORDERED: Heparin 10,000 UNITS/10 ML Vial (for IV use) ONE (14:20)
[2017-09-09] MEDS ORDERED: Heparin Drip 25,000 UNIT/250 ML BAG IV.CONT PRN (16:52)
[2017-09-09] MEDS: Senna/Docusate Sodium 8.6/50 MG Tablet PO SCH ×2 (17:28→20:00)
[2017-09-09] MEDS: buPROPion 150 MG 12 HR Tablet PO SCH ×2 (17:28→20:00)
[2017-09-09] MEDS: Heparin Drip 25,000 UNIT/250 ML BAG IV.CONT SCH (17:31)
--- NOTE | 2017-09-09 18:11 | US ---
EXAM DATE: 09/08/2017 6:04 PM EDT AGE/SEX: 57 years / Female INDICATIONS: Pain and mild bruising in the left groin. CLINICAL DATA: This is the patient's initial encounter. Patient reports that signs and symptoms have been present for 4 - 6 days and indicates a pain score of 5/10. MEDICAL/SURGICAL HISTORY: Hypertension. Deep venous thrombosis. Asthma. Hysterectomy. Cholec ystectomy. Bone marrow biopsy. COMPARISON: [facility] – [place], US VENOUS DOPPLER LEG LEFT, 09/01/2017. . TECHNIQUE: French-scale and color Doppler imaging of the inguinal region was performed. FINDINGS: The left groin was scanned. There is some hypoechogenic material within the superficial femoral vein lumen characteristic of deep venous thrombosis. A catheter is seen coursing through the lumen. No minor dence of pseudoaneurysm. No increased flow seen about the left groin by color Doppler.. CONCLUSION: 1. No evidence of pseudoaneurysm. Electronically signed by: Francisco Moreno MD 09/09/2017 6:09 PM EDT
--- NOTE | 2017-09-09 19:04 | P.PNIM ---
Subjective Interval history: Pt complains of pain in the lower back and LLE She had revascularization procedure completed today and IVC filter was removed Denies any headache, chest pain, SOB or palpitations. Physical Exam Vital signs: Vital Signs 09/08/17 20:00 09/08/17 22:11 09/08/17 23:00 Temperature 98.7 F Pulse Rate 70 Respiratory Rate 27 H 23 22 Blood Pressure 117/62 Pulse Oximetry 95 09/09/17 00:00 09/09/17 01:46 09/09/17 03:00 Temperature 98.6 F Pulse Rate 62 Respiratory Rate 29 H 29 H 21 Blood Pressure 99/56 L Pulse Oximetry 96 09/09/17 04:00 09/09/17 04:45 09/09/17 08:00 Temperature 98.6 F 98.2 F Pulse Rate 58 L 58 L Respiratory Rate 16 14 Blood Pressure 118/65 96/60 L Pulse Oximetry 100 98 99 09/09/17 16:00 09/09/17 16:48 09/09/17 17:03 Temperature 98.2 F Pulse Rate 68 59 L Respiratory Rate 22 Blood Pressure 120/68 114/63 118/60 Pulse Oximetry 97 09/09/17 17:18 09/09/17 17:33 09/09/17 18:03 Temperature Pulse Rate 70 70 66 Respiratory Rate Blood Pressure 110/62 96/57 L 106/58 L Pulse Oximetry 09/09/17 18:33 Temperature Pulse Rate 65 Respiratory Rate Blood Pressure 108/66 Pulse Oximetry Intake & Output 09/09/17 09/09/17 09/10/17 06:59 18:59 06:59 Intake Total 750 / 750 440 / 440 Output Total 1000 / 1000 Balance 750 / 750 -560 / -560 Weight 78.9 kg Intake: IV 500 / 500 100 / 100 Cathflo Activase Inj 10 MG In 500 / 500 NS Inj 500 ML @ Per Protocol 100 mls/hr I-CATHETER TITRATE PRN Rx#:[id number] Heparin/NS PF Inj 500 ML @ 10 100 / 100 mls/hr IV.SIG .Q24H PRN Rx#: [id number] Oral 250 / 250 340 / 340 Output: Urine 1000 / 1000 Other: # Voids 2 1 Date of Last Bowel Movement 09/07/17 09/07/17 # Bowel Movements 0 Narrative: GENERAL: This is a well-nourished, well-developed patient, in no apparent distress. CARDIOVASCULAR: Regular RESPIRATORY: CTA bilaterally. GASTROINTESTINAL: +BS, soft, nontender, nondistended. MUSCULOSKELETAL: LLE edema from upper thigh to ankle Results - Labs CBC & Chem 7: 09/10/17 04:43 09/08/17 07:36 Laboratory Results - last 24 hr 09/08/17 09/08/17 09/09/17 19:40 19:40 01:15 WBC 7.0 6.5 RBC 3.88 L 3.75 L Hgb 11.8 11.5 L Hct 35.5 34.3 L MCV 91.4 91.6 MCH 30.4 30.6 MCHC 33.3 33.4 RDW 13.2 12.8 Plt Count 301 291 MPV 7.7 7.9 Neut % (Auto) 72.7 H 63.2 Lymph % (Auto) 15.0 22.8 [place] % (Auto) 8.3 H 8.7 H Eos % (Auto) 3.2 4.3 H Baso % (Auto) 0.8 1.0 Neut # (Auto) 5.1 4.1 Lymph # (Auto) 1.1 1.5 [place] # (Auto) 0.6 0.6 Eos # (Auto) 0.2 0.3 Baso # (Auto) 0.1 0.1 WBC Differential . . Differential Comment Auto diff final Auto diff final APTT 34.6 H D Fibrinogen 139 L 09/09/17 09/09/17 09/09/17 01:15 07:39 07:39 WBC 5.9 RBC 3.63 L Hgb 11.2 L Hct 33.0 L MCV 90.9 MCH 30.8 MCHC 33.9 RDW 13.2 Plt Count 263 MPV 8.0 Neut % (Auto) 59.5 Lymph % (Auto) 24.4 [place] % (Auto) 9.8 H Eos % (Auto) 5.4 H Baso % (Auto) 0.9 Neut # (Auto) 3.5 Lymph # (Auto) 1.4 [place] # (Auto) 0.6 Eos # (Auto) 0.3 Baso # (Auto) 0.1 WBC Differential . Differential Comment Auto diff final APTT 37.1 H 37.0 H Fibrinogen 83 L* 96 L* 09/09/17 10:27 WBC RBC Hgb Hct MCV MCH MCHC RDW Plt Count MPV Neut % (Auto) Lymph % (Auto) [place] % (Auto) Eos % (Auto) Baso % (Auto) Neut # (Auto) Lymph # (Auto) [place] # (Auto) Eos # (Auto) Baso # (Auto) WBC Differential Differential Comment APTT Fibrinogen 97 L* - Imaging Impressions Lower Extremity Ultrasound 09/08/17 00:00 CONCLUSION: 1. No evidence of pseudoaneurysm. Abdomen/Pelvis CT 09/01/17 00:00 CONCLUSION: 1. Negative CT scan of the abdomen and pelvis. I do not see an etiology for the patient's abdominal pain and short of breath shortness of breath. Chest CTA 09/01/17 00:00 CONCLUSION: No evidence of pulmonary embolism. Venous Doppler Study 09/01/17 09:16 CONCLUSION: 1. Extensive deep venous thrombosis as above. Extremity Venous Study 09/08/17 00:00 CONCLUSION: 1. Uncomplicated venogram as above. 2. Extensive DVT throughout the left lower extremity extending up into the left iliac venous system. High-grade stenosis in the central common iliac vein characteristic of a May Thurner syndrome. 3. TPA will be infused overnight. Reevaluation tomorrow late morning/early afternoon. If there is sufficient clearing, could consider stenting the central left common iliac at that time. Lower Extremity Ultrasound 09/08/17 00:00 CONCLUSION: 1. No evidence of pseudoaneurysm. Central Venous Line 09/08/17 09:34 CONCLUSION: 1. Uncomplicated line placement as above. Please note this was done in conjunction with IVC filter placement. IVC Filter Removal 09/08/17 09:34 CONCLUSION: 1. Uncomplicated inferior vena cava filter retrieval as above. Assessment and Plan - Assessment (1) DVT (deep venous thrombosis) Code(s): I82.409 - Acute embolism and thrombosis of unspecified deep veins of unspecified lower extremity Status: Acute Plan: DVT LLE - Patient with two recent hospitalizations likely causing DVT, but patient is being followed by outpatient Oncology/Hematology Dr. Santiago for concern of "pre -lymphoma" - US LLE revealed: Extensive deep venous thrombosis - Pt was started on Heparin drip in the ER, and was transitioned to Eliquis on - Anti-cardiolipin antibody, Beta 2 glycoprotein abs, Lupus anticoagulant, prothrombin gene mutation (pending) - CTA chest: -No evidence of PE -Examination of the pulmonary vasculature demonstrates good filling of the main, lobar and segmental branches. There are no filling defects to suggest pulmonary embolism. Multiplanar reconstructions are also unremarkable. - The lungs are free of acute parenchymal opacity. No pulmonary nodules or pleural effusions are identified. Examination of the mediastinum demonstrates no abnormally enlarged lymph nodes by CT criteria. No axillary or hilar abnormalities are identified. Coronary artery calcifications are not present. - CT abd/pelvis : - Negative CT scan of the abdomen and pelvis. I do not see an etiology for the patient's abdominal pain and short of breath shortness of breath. -The lower lungs are clear. -There is no pericardial effusion -The liver is free of focal defects. Surgical clips gallbladder and the gallbladder fossa -The spleen and pancreas unremarkable -Adrenal glands appear normal -Right kidney: Symmetrical function without stone or mass -Left kidney: Symmetrical function without stone or mass -And no inflammatory changes in the abdomen. -There is no free fluid -In the pelvis there are minimal diverticuli in the sigmoid colon. There is no free fluid or free air. -Review of bone windows reveals mild degenerative changes about both SI joints. -There are moderate degenerative changes lower lumbar spine - Appreciate consult from Hematology. -Case discussed between Dr. Khanna and Vascular Surgeon Dr Padilla Vascular. - Pt underwent revascularization procedure (09/08) with IR, Dr. Interiano - placement of retrievable IVC filter - clot thrombolysis with TPA - heparin/TPA drip overnight - On 09/09 pt had retrievable IVC filter removed. Case discussed between Dr. Teixeira and Dr. Interiano (09/09/17), pt had successful lysis of clot burden with the revascularization procedure. - Cont. IV Heparin tonight and change to oral anticoagulants tomorrow - Change IV Morphine to PO [place] - Advance to regular diet - Possible May Thurner syndrome - supportive care. Hypokalemia - Patient with chronic diarrhea for 6 months and poor PO intake - corrected. - Mag 2.2 - continuous Telemetry Recurrent hypotension and bradycardia - Concern and question regarding adrenal insufficiency - Cosyntropin stim test, cortisol level 4.0 before Cosyntropin then 45.8 after Cosyntropin - Continuous cardiac telemetry Hypothyroidism - Continue patient home Synthroid - TSH 1.640, Free T4 1.08 Sleep apnea - Patient may use home CPAP Asthma - DuoNeb as needed Chronic diarrhea, improving - Supportive care - C diff was negative - Stool culture was negative (2) Hypokalemia Code(s): E87.6 - Hypokalemia Status: Acute (3) Asthma Code(s): J45.909 - Unspecified asthma, uncomplicated Status: Chronic (4) Chronic diarrhea Code(s): K52.9 - Noninfective gastroenteritis and colitis, unspecified Status : Chronic (5) JENNIFER (obstructive sleep apnea) Code(s): G47.33 - Obstructive sleep apnea (adult) (pediatric) Status: Chronic - Plan Patient examined. Assessment and plan formulated with Nelly Vinson PA-C. I agree with the above.
[2017-09-09] MEDS: clonazePAM 0.5 MG Tablet PO PRN (20:55)
[2017-09-09 22:19] LABS: Activated Partial Thrombo Time 48.3 sec (24.3-30.1); INR 1.2 Ratio
[2017-09-10 05:23] LABS: Baso # (Auto) 0.1 th/mm3 (0.0-0.2); Baso % (Auto) 0.9 % (0.0-2.0); Eos # (Auto) 0.3 th/mm3 (0.0-0.4); Eos % (Auto) 5.3 % (0.0-4.0); Hematocrit 29.9 % (35.0-46.0); Hemoglobin 10.1 gm/dL (11.6-15.3); Lymph # (Auto) 1.4 th/mm3 (1.0-4.8); Lymph % (Auto) 21.8 % (9.0-44.0); Mean Corpuscular HGB Conc 33.7 % (32.0-36.0); Mean Corpuscular Hemoglobin 30.5 pg (27.0-34.0); Mean Corpuscular Volume 90.4 fL (80.0-100.0); Mean Platelet Volume 8.4 fL (7.0-11.0); Mono # (Auto) 0.6 th/mm3 (0.0-0.9); Mono % (Auto) 9.2 % (0.0-8.0); Neut % (Auto) 62.8 % (16.0-70.0); Platelet Count 226 th/mm3 (150-450); Red Cell Distribution Width 12.9 % (11.6-17.2); White Blood Count 6.4 th/mm3 (4.0-11.0)
[2017-09-10 06:19] LABS: Hematocrit 31.7 % (35.0-46.0); Hemoglobin 10.7 gm/dL (11.6-15.3); Mean Corpuscular HGB Conc 33.7 % (32.0-36.0); Mean Corpuscular Volume 91.9 fL (80.0-100.0); Mean Platelet Volume 8.8 fL (7.0-11.0); Platelet Count 242 th/mm3 (150-450); Red Blood Count 3.44 mil/mm3 (4.00-5.30); Red Cell Distribution Width 12.8 % (11.6-17.2); White Blood Count 6.8 th/mm3 (4.0-11.0)
[2017-09-10] MEDS: Senna/Docusate Sodium 8.6/50 MG Tablet PO SCH ×2 (08:01→20:14)
[2017-09-10] MEDS: buPROPion 150 MG 12 HR Tablet PO SCH ×2 (08:01→20:14)
[2017-09-10] MEDS: Levothyroxine 112 MCG Tablet PO SCH (08:01)
[2017-09-10] MEDS: Morphine Inj 4 MG/ML Vial IV.PUSH PRN (15:28)
--- NOTE | 2017-09-10 19:06 | P.PNIM ---
Subjective Interval history: Pt was able to ambulate within the room today. Pt tolerating PO intake. Physical Exam Vital signs: Vital Signs 09/09/17 19:03 09/09/17 19:33 09/09/17 20:00 Temperature 98.9 F Pulse Rate 74 66 Respiratory Rate 26 H 27 H Blood Pressure 110/73 109/76 109/56 L Pulse Oximetry 92 L 92 L 09/09/17 20:33 09/09/17 21:33 09/09/17 22:33 Temperature Pulse Rate 72 64 Respiratory Rate 16 19 Blood Pressure 111/63 93/52 L 90/56 L Pulse Oximetry 94 L 98 09/09/17 23:33 09/10/17 00:00 09/10/17 03:00 Temperature 98.5 F Pulse Rate 65 62 Respiratory Rate 18 18 23 Blood Pressure 93/54 L 89/52 L Pulse Oximetry 97 97 09/10/17 04:00 09/10/17 08:00 09/10/17 14:30 Temperature 98.8 F 98 F Pulse Rate 67 65 Respiratory Rate 25 H 18 18 Blood Pressure 102/59 L 99/58 L Pulse Oximetry 93 L Intake & Output 09/10/17 09/10/17 09/11/17 06:59 18:59 06:59 Intake Total 500 / 500 Balance 500 / 500 Weight 79.9 kg Intake: Oral 500 / 500 Other: # Voids 2 Date of Last Bowel Movement 09/07/17 09/07/17 # Bowel Movements 0 Narrative: GENERAL: This is a well-nourished, well-developed patient, in no apparent distress. CARDIOVASCULAR: Regular rate and rhythm without murmurs, gallops, or rubs. RESPIRATORY: Clear to auscultation. Breath sounds equal bilaterally. No wheezes , rales, or rhonchi. GASTROINTESTINAL: Abdomen soft, non-tender, nondistended. Normal active bowel sounds MUSCULOSKELETAL: Extremities without clubbing, cyanosis, or edema. NEURO: Alert & Oriented x3, [place] Results - Labs CBC & Chem 7: 09/10/17 04:43 09/08/17 07:36 - Imaging Abdomen/Pelvis CT 09/01/17 00:00 CONCLUSION: 1. Negative CT scan of the abdomen and pelvis. I do not see an etiology for the patient's abdominal pain and short of breath shortness of breath. Chest CTA 09/01/17 00:00 CONCLUSION: No evidence of pulmonary embolism. Venous Doppler Study 09/01/17 09:16 CONCLUSION: 1. Extensive deep venous thrombosis as above. Extremity Venous Study 09/08/17 00:00 CONCLUSION: 1. Uncomplicated venogram as above. 2. Extensive DVT throughout the left lower extremity extending up into the left iliac venous system. High-grade stenosis in the central common iliac vein characteristic of a May Thurner syndrome. 3. TPA will be infused overnight. Reevaluation tomorrow late morning/early afternoon. If there is sufficient clearing, could consider stenting the central left common iliac at that time. Lower Extremity Ultrasound 09/08/17 00:00 CONCLUSION: 1. No evidence of pseudoaneurysm. Central Venous Line 09/08/17 09:34 CONCLUSION: 1. Uncomplicated line placement as above. Please note this was done in conjunction with IVC filter placement. IVC Filter Removal 09/08/17 09:34 CONCLUSION: 1. Uncomplicated inferior vena cava filter retrieval as above. Assessment and Plan - Assessment (1) DVT (deep venous thrombosis) Code(s): I82.409 - Acute embolism and thrombosis of unspecified deep veins of unspecified lower extremity Status: Acute Plan: DVT LLE - Patient with two recent hospitalizations likely causing DVT, but patient is being followed by outpatient Oncology/Hematology Dr. Santiago for concern of "pre -lymphoma" - US LLE revealed: Extensive deep venous thrombosis - Pt was started on Heparin drip in the ER, and was transitioned to Eliquis on - Anti-cardiolipin antibody, Beta 2 glycoprotein abs, Lupus anticoagulant, prothrombin gene mutation (pending) - CTA chest: -No evidence of PE -Examination of the pulmonary vasculature demonstrates good filling of the main, lobar and segmental branches. There are no filling defects to suggest pulmonary embolism. Multiplanar reconstructions are also unremarkable. - The lungs are free of acute parenchymal opacity. No pulmonary nodules or pleural effusions are identified. Examination of the mediastinum demonstrates no abnormally enlarged lymph nodes by CT criteria. No axillary or hilar abnormalities are identified. Coronary artery calcifications are not present. - CT abd/pelvis : - Negative CT scan of the abdomen and pelvis. I do not see an etiology for the patient's abdominal pain and short of breath shortness of breath. -The lower lungs are clear. -There is no pericardial effusion -The liver is free of focal defects. Surgical clips gallbladder and the gallbladder fossa -The spleen and pancreas unremarkable -Adrenal glands appear normal -Right kidney: Symmetrical function without stone or mass -Left kidney: Symmetrical function without stone or mass -And no inflammatory changes in the abdomen. -There is no free fluid -In the pelvis there are minimal diverticuli in the sigmoid colon. There is no free fluid or free air. -Review of bone windows reveals mild degenerative changes about both SI joints. -There are moderate degenerative changes lower lumbar spine - Appreciate consult from Hematology. -Case discussed between Dr. Khanna and Vascular Surgeon Dr Padilla Vascular. - Pt underwent revascularization procedure (09/08) with IR, Dr. Interiano - placement of retrievable IVC filter - clot thrombolysis with TPA - heparin/TPA drip overnight - On 09/09 pt had retrievable IVC filter removed. Case discussed between Dr. Teixeira and Dr. Interiano (09/09/17), pt had successful lysis of clot burden with the revascularization procedure. - Heparin stopped - pt appears to have small hematoma at IV sit at right neck - awaiting soft tissue neck US - will start eliquis 09/10 - CBC in AM - pt continues to have some nausea, narcotics likely contributing - norco/morphine prn - PT - OT to evaluate - [place]? 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 Hypokalemia - Patient with chronic diarrhea for 6 months and poor PO intake - corrected. - Mag 2.2 - continuous Telemetry Recurrent hypotension and bradycardia - Concern and question regarding adrenal insufficiency - Cosyntropin stim test, cortisol level 4.0 before Cosyntropin then 45.8 after Cosyntropin - Continuous cardiac telemetry Hypothyroidism - Continue patient home Synthroid - TSH 1.640, Free T4 1.08 Sleep apnea - Patient may use home CPAP Asthma - DuoNeb as needed Chronic diarrhea, improving - Supportive care - C diff was negative - Stool culture was negative (2) Hypokalemia Code(s): E87.6 - Hypokalemia Status: Acute (3) Asthma Code(s): J45.909 - Unspecified asthma, uncomplicated Status: Chronic (4) Chronic diarrhea Code(s): K52.9 - Noninfective gastroenteritis and colitis, unspecified Status : Chronic (5) JENNIFER (obstructive sleep apnea) Code(s): G47.33 - Obstructive sleep apnea (adult) (pediatric) Status: Chronic - Plan Patient examined. Assessment and plan formulated with Nelly Vinson PA-C. I agree with the above.
[2017-09-10] MEDS: clonazePAM 0.5 MG Tablet PO PRN (21:10)
--- NOTE | 2017-09-10 23:12 | US ---
EXAM DATE: 09/10/2017 9:57 PM EDT AGE/SEX: 57 years / Female INDICATIONS: Palpable mass. CLINICAL DATA: This is the patient's initial encounter. Patient reports that signs and symptoms have been present for 1 day and indicates a pain score of 0/10. MEDICAL/SURGICAL HISTORY: . Hypertension. Deep venous thrombosis. Asthma. . Hysterectomy. Chol ecystectomy. Bone marrow biopsy. COMPARISON: No prior exams available for comparison. FINDINGS: Focused ultrasound was performed of the area of concern in the anterior right neck. Ultrasound demons trates a hypoechoic nonshadowing area in the subcutaneous and muscular soft tissues which measures 11 x 5 x 6 mm. There is some internal echoes and stop no flow seen by color Doppler. CONCLUSION: 1. 11 x 6 mm complicated fluid collection at the area of concern anterior right neck. Electronically signed by: Francisco Moreno MD 09/10/2017 11:11 PM EDT
[2017-09-11] MEDS: Levothyroxine 112 MCG Tablet PO SCH (06:08)
[2017-09-11 07:41] LABS: Hematocrit 28.7 % (35.0-46.0); Hemoglobin 9.8 gm/dL (11.6-15.3); Mean Corpuscular HGB Conc 34.2 % (32.0-36.0); Mean Corpuscular Hemoglobin 30.8 pg (27.0-34.0); Mean Platelet Volume 8.4 fL (7.0-11.0); Platelet Count 249 th/mm3 (150-450); Red Blood Count 3.19 mil/mm3 (4.00-5.30); Red Cell Distribution Width 12.8 % (11.6-17.2); White Blood Count 4.9 th/mm3 (4.0-11.0)
[2017-09-11] MEDS: Senna/Docusate Sodium 8.6/50 MG Tablet PO SCH ×2 (08:46→20:33)
[2017-09-11] MEDS: buPROPion 150 MG 12 HR Tablet PO SCH ×2 (08:46→20:33)
--- NOTE | 2017-09-11 14:00 | P.DS ---
<Berna Auguste W - Last Filed: 09/11/17 15:22> Date of admission: 09/01/17 11:09 Primary care physician: Rubina Freire MD Attending physician on discharge: Omar Teixeira Brief History from admission: This is a 57 year old female patient Adrenal nodule, hypothyroidism, HTN, hyperlipidemia, Sleep apnea, asthma/depression, ? 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 " presents tot the ER today due to left lower extremity and aching/tight pain which has been present x 1 day. Patient began having aching pain left calf 3 days ago the left lower extremity became edematous from thigh down to ankle which started last night. Patient has had having intermitted difficult with diarrhea and abdominal pain since February and has had two recent hospitalizations with limited mobility. Patient reports in January she had bone marrow biopsy by Dr. Santiago which showed, "a collection of B cells," and have been followed for possible lymphoma. In February patient was having BMs approximately 6 times a day. Diarrhea is non- bloody not black and was initially nonpainful. In May 2017 patient started having abd pain went to [facility] Found to have bradycardia (as low as 30s) and hypotension. At that time patient had EGD and colonoscopy per patient and daughter they were both normal. Patient was found to have a low cortisol level of 2.2. Cortrophin stem test was done but reportedly did not show adrenal insufficiency. Patient was told that she was, "depleted," from diarrhea for months. Then in July 2017 patient had an episode of confusion went to [facility] found to again have bradycardia and hypotension (requiring pressors). At that time a nuclear stress test was done but patient and daughter do not know results. At that time patient was diagnosed with pancolitis via CT scan treated with abx for five days then coloscopy done which was reportedly normal and abx were stopped. Patient has followed up with Gastroenterology Dr. Verduzco outpatient. A second EGD was done outpatient 2 weeks ago has not yet followed up for results. Now diarrhea has improved patient reports that she has no BMs and then other days she will have 3-4 liquid BMs in a day. Diarrhea has no blood or black color present. Patient also reports constant midepigastric pain worse after eating but also happens spontaneously also. Abdominal pain associated with nausea and dry heaves. Patient has had decreased PO intake due to lack of appetite and fear of pain. Patient has lost 20 lbs since February. US Left lower extremity 09/01/17 reveals: Extensive deep venous thrombosis PMH: hypothyroidism, Sleep apnea, asthma, chronic diarrhea follows with Dr. Santiago for abnormal bone marrow bx, "pre-lymphoma." PSxH: partial hysterectomy cholecystectomy T&A FMH: Mother at 56 secondary [place] Father at 70 secondary to [place] Denies family history of cancers Social history: has a 14 year old autistic son and grown daughter working at [employer] with children denies ETOH use, tobacco use or illicit drug use DS: Diagnosis - Discharge Diagnosis (1) DVT (deep venous thrombosis) Status: Acute DS: Summary Hospital Course: DVT LLE - Patient with two recent hospitalizations likely causing DVT, but patient is being followed by outpatient Oncology/Hematology Dr. Santiago for concern of "pre -lymphoma" - US LLE revealed: Extensive deep venous thrombosis - Pt was started on Heparin drip in the ER, and was transitioned to Eliquis on - Anti-cardiolipin antibody, Beta 2 glycoprotein abs, Lupus anticoagulant, prothrombin gene mutation (pending) - CTA chest: -No evidence of PE -Examination of the pulmonary vasculature demonstrates good filling of the main, lobar and segmental branches. There are no filling defects to suggest pulmonary embolism. Multiplanar reconstructions are also unremarkable. - The lungs are free of acute parenchymal opacity. No pulmonary nodules or pleural effusions are identified. Examination of the mediastinum demonstrates no abnormally enlarged lymph nodes by CT criteria. No axillary or hilar abnormalities are identified. Coronary artery calcifications are not present. - CT abd/pelvis : - Negative CT scan of the abdomen and pelvis. I do not see an etiology for the patient's abdominal pain and short of breath shortness of breath. -The lower lungs are clear. -There is no pericardial effusion -The liver is free of focal defects. Surgical clips gallbladder and the gallbladder fossa -The spleen and pancreas unremarkable -Adrenal glands appear normal -Right kidney: Symmetrical function without stone or mass -Left kidney: Symmetrical function without stone or mass -And no inflammatory changes in the abdomen. -There is no free fluid -In the pelvis there are minimal diverticuli in the sigmoid colon. There is no free fluid or free air. -Review of bone windows reveals mild degenerative changes about both SI joints. -There are moderate degenerative changes lower lumbar spine - Appreciate consult from Hematology. -Case discussed between Dr. Khanna and Vascular Surgeon Dr Padilla Vascular. - Pt underwent revascularization procedure (09/08) with IR, Dr. Interiano - placement of retrievable IVC filter - clot thrombolysis with TPA - heparin/TPA drip overnight - On 09/09 pt had retrievable IVC filter removed. Case discussed between Dr. Teixeira and Dr. Interiano (09/09/17), pt had successful lysis of clot burden with the revascularization procedure. - Heparin stopped - 09/11/17 Dr. Mar discussed the case with Dr. Hilario who recommended eliquis 5 mg BID which was started. Patient will require at least three months of anticoagulation. Patient instructed to follow up with her oncologist/ director information security Dr. 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 - Dr. Teixeira spoke with patient daughter (over the phone) and son (over the phone) in great detail hospitalization, DC plan discussed and all questions were answered Hypokalemia - Patient with chronic diarrhea for 6 months and poor PO intake - corrected. - Mag 2.2 - continuous Telemetry Recurrent hypotension and bradycardia - Concern and question regarding adrenal insufficiency - Cosyntropin stim test, cortisol level 4.0 before Cosyntropin then 45.8 after Cosyntropin - Continuous cardiac telemetry Hypothyroidism - Continue patient home Synthroid - TSH 1.640, Free T4 1.08 Sleep apnea - Patient may use home CPAP Asthma - DuoNeb as needed Chronic diarrhea, improving - Supportive care - C diff was negative - Stool culture was negative - Time Spent with Patient Total time spent providing and/or coordinating discharge services: - Quality: VTE Deep Vein Thrombosis/Pulmonary Embolism Present on Admission: Yes Exam Vital signs: Vital Signs 09/10/17 14:30 09/10/17 15:00 09/10/17 16:00 Temperature 98.5 F Pulse Rate Respiratory Rate 18 16 Blood Pressure 111/68 Pulse Oximetry 09/10/17 19:27 09/10/17 20:00 09/10/17 21:31 Temperature 98.2 F 97.9 F Pulse Rate 58 L 61 Respiratory Rate 16 21 14 Blood Pressure 108/62 103/63 Pulse Oximetry 96 100 09/10/17 21:49 09/11/17 00:00 09/11/17 00:06 Temperature 98.0 F Pulse Rate 57 L 62 67 Respiratory Rate 14 Blood Pressure 106/55 L Pulse Oximetry 95 09/11/17 03:00 09/11/17 04:00 09/11/17 08:00 Temperature 98.0 F 98.3 F Pulse Rate 60 60 Respiratory Rate 16 14 16 Blood Pressure 108/60 106/55 L Pulse Oximetry 95 94 L 09/11/17 12:00 Temperature 98.4 F Pulse Rate 57 L Respiratory Rate 16 Blood Pressure 123/64 Pulse Oximetry 96 Intake & Output 09/10/17 09/11/17 09/11/17 18:59 06:59 18:59 Intake Total 700 / 700 Output Total 1000 / 1000 Balance -300 / -300 Intake: Oral 700 / 700 Output: Urine 1000 / 1000 Other: # Voids 4 2 Date of Last Bowel Movement 09/07/17 09/10/17 09/10/17 Narrative: GENERAL: This is a well-nourished, well-developed patient, in no apparent distress. CARDIOVASCULAR: Regular rate and rhythm without murmurs, gallops, or rubs. RESPIRATORY: Clear to auscultation. Breath sounds equal bilaterally. No wheezes , rales, or rhonchi. GASTROINTESTINAL: Abdomen soft, non-tender, nondistended. Normal active bowel sounds MUSCULOSKELETAL: Extremities without clubbing, cyanosis, or edema. NEURO: Alert & Oriented x3, KING Results Procedures completed during hospitalization: - 09/09/17 pt had successful lysis of clot burden with the revascularization procedure. - On 09/09 pt had retrievable IVC filter removed. Labs on day of discharge: Labs from last 24 hours 09/11/17 06:15 WBC 4.9 RBC 3.19 L Hgb 9.8 L Hct 28.7 L MCV 90.0 MCH 30.8 MCHC 34.2 RDW 12.8 Plt Count 249 MPV 8.4 - Impressions ITS Impressions Abdomen/Pelvis CT 09/01/17 00:00 CONCLUSION: 1. Negative CT scan of the abdomen and pelvis. I do not see an etiology for the patient's abdominal pain and short of breath shortness of breath. Chest CTA 09/01/17 00:00 CONCLUSION: No evidence of pulmonary embolism. Venous Doppler Study 09/01/17 09:16 CONCLUSION: 1. Extensive deep venous thrombosis as above. Lower Extremity Ultrasound 09/08/17 00:00 CONCLUSION: 1. No evidence of pseudoaneurysm. Central Venous Line 09/08/17 09:34 CONCLUSION: 1. Uncomplicated line placement as above. Please note this was done in conjunction with IVC filter placement. Neck Ultrasound 09/10/17 00:00 CONCLUSION: 1. 11 x 6 mm complicated fluid collection at the area of concern anterior right neck. <Omar Teixeira B - Last Filed: 09/16/17 00:16> Date of admission: 09/01/17 11:09 Primary care physician: Rubina Freire MD DS: Diagnosis - Discharge Diagnosis (1) DVT (deep venous thrombosis) Status: Acute (2) Hypokalemia Status: Acute (3) Asthma Status: Chronic (4) Chronic diarrhea Status: Chronic (5) JENNIFER (obstructive sleep apnea) Status: Chronic DS: Summary Hospital Course: Patient examined. Assessment and plan formulated with Berna Auguste PA-C. I agree with the above. - Time Spent with Patient Total time spent providing and/or coordinating discharge services: Greater than 30 minutes Results - Impressions ITS Impressions Abdomen/Pelvis CT 09/01/17 00:00 CONCLUSION: 1. Negative CT scan of the abdomen and pelvis. I do not see an etiology for the patient's abdominal pain and short of breath shortness of breath. Chest CTA 09/01/17 00:00 CONCLUSION: No evidence of pulmonary embolism. Venous Doppler Study 09/01/17 09:16 CONCLUSION: 1. Extensive deep venous thrombosis as above. IVC Filter Placement X-Ray 09/08/17 00:00 CONCLUSION: 1. Uncomplicated inferior vena cava filter retrieval as above. Lower Extremity Ultrasound 09/08/17 00:00 CONCLUSION: 1. No evidence of pseudoaneurysm. Central Venous Line 09/08/17 09:34 CONCLUSION: 1. Uncomplicated line placement as above. Please note this was done in conjunction with IVC filter placement. Miscellaneous Special Procedure 09/09/17 00:00 CONCLUSION: 1. 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 2. I will have the patient remain on heparin anticoagulation overnight. She can be started on oral anticoagulation tomorrow. 3. At least 6 months of oral anticoagulation and compression stocking utilization would be recommended for this patient Neck Ultrasound 09/10/17 00:00 CONCLUSION: 1. 11 x 6 mm complicated fluid collection at the area of concern anterior right neck. Discharge Plan - Discharge Order Discharge Orders: Discharge Order (Routine); Ordered 09/11/17 Ordered By: Berna Auguste - Physicians Team Primary Care Provider: Rubina Freire Attending Provider: Lito Khanna Other Providers: Tatianna Hilario ; Amarjit Padilla MD
--- NOTE | 2017-09-11 18:41 | ECG ---
Date Performed: 09/10/2017 Time Performed: 20:09:54 PTAGE: 57 years EKG: Sinus bradycardia. Poor R wave progression - probable normal variant Ant/septal and lateral T wave changes are nonspecific Generalized low QRS voltages Borderline ECG NO PREVIOUS TRACING DOCTOR: Rudolph De Leon Interpretating Date/Time 09/11/2017 18:39:20
--- NOTE | 2017-09-11 19:17 | ECG ---
Date Performed: 09/11/2017 Time Performed: 09:51:47 PTAGE: 57 years EKG: Sinus rhythm LOW QRS VOLTAGE IN PRECORDIAL LEADS BORDERLINE ECG PREVIOUS TRACING : 09/10/2017 20.09 Since the previous tracing, no significant change noted DOCTOR: Rudolph De Leon Interpretating Date/Time 09/11/2017 19:15:50
[2017-09-11] MEDS: clonazePAM 0.5 MG Tablet PO PRN (22:29)
--- NOTE | 2017-09-12 01:17 | P.PNONC ---
Subjective Interval history: Resting comfortably in bed. Late note entry. Patient seen at bedside at approximately 7 pm on 09/11/2017. Objective Vital Signs/Intake & Output: Vital Signs 09/11/17 03:00 09/11/17 04:00 09/11/17 08:00 Temperature 98.0 F 98.3 F Pulse Rate 60 60 Respiratory Rate 16 14 16 Blood Pressure 108/60 106/55 L Pulse Oximetry 95 94 L 09/11/17 12:00 09/11/17 16:00 09/11/17 20:00 Temperature 98.4 F 98.3 F 98.0 F Pulse Rate 57 L 68 76 Respiratory Rate 16 18 16 Blood Pressure 123/64 99/60 L 109/59 L Pulse Oximetry 96 94 L 94 L 09/11/17 23:00 09/12/17 00:00 Temperature 98.1 F Pulse Rate 71 Respiratory Rate 18 14 Blood Pressure 108/62 Pulse Oximetry 95 Intake & Output 09/11/17 09/11/17 09/12/17 06:59 18:59 06:59 Intake Total 720 / 720 Balance 720 / 720 Intake: Oral 720 / 720 Other: # Voids 2 3 Date of Last Bowel Movement 09/10/17 09/10/17 09/10/17 Result Diagrams: 09/11/17 06:15 09/08/17 07:36 Laboratory Results: Laboratory Results - last 24 hr 09/11/17 06:15 WBC 4.9 RBC 3.19 L Hgb 9.8 L Hct 28.7 L MCV 90.0 MCH 30.8 MCHC 34.2 RDW 12.8 Plt Count 249 MPV 8.4 Medications: Active Medications Generic Name Dose Route Start Last Admin Trade Name Freq PRN Reason Stop Dose Admin Hydrocodone Bitart/Acetaminophen 1 tab 09/09/17 19:35 09/11/17 22:29 [place] 5/325 PO 1 tab Q6H PRN Administration pain 1-10 Al Hydroxide/Mg Hydroxide 30 ml 09/03/17 13:17 09/07/17 09:55 Milk Of Magnesia Liq PO 30 ml Q12H PRN Administration Mild Constipation Apixaban 5 mg 09/11/17 13:00 09/11/17 20:33 Eliquis PO 5 mg BID [facility]I Administration Bupropion HCl 150 mg 09/01/17 21:00 09/11/17 20:33 Wellbutrin Sr PO 150 mg BID [facility]I Administration Clonazepam 0.5 mg 09/01/17 13:28 09/11/17 22:29 Klonopin PO 0.5 mg BID PRN Administration Anxiety Dicyclomine HCl 10 mg 09/01/17 13:28 09/02/17 06:51 Bentyl PO 10 mg QID PRN Administration Cramps Escitalopram Oxalate 20 mg 09/02/17 09:00 09/11/17 08:54 Lexapro PO 20 mg DAILY [facility]I Administration Levothyroxine Sodium 112 mcg 09/02/17 06:00 09/11/17 06:08 Synthroid PO 112 mcg DAILY@0600 CHI Administration Pantoprazole Sodium 40 mg 09/02/17 09:00 09/11/17 08:46 Protonix PO 40 mg DAILY [facility]I Administration Pravastatin Sodium 20 mg 09/06/17 21:00 09/11/17 20:33 Pravachol PO 20 mg HS [facility]I Administration Psyllium Hydrophilic Mucilloid 1 packet 09/05/17 16:30 09/05/17 16:54 Metamucil Smooth Texture Sf/Gf Pkt PO 1 packet DAILY PRN Administration CONSTIPATION Senna/Docusate Sodium 1 tab 09/03/17 21:00 09/11/17 20:33 Debbie-Colace PO 1 tab BID [facility]I Administration Sodium Chloride 2 ml 09/01/17 21:00 09/11/17 20:34 Ns Flush IV.FLUSH 2 ml BID CHI Administration Objective Remarks: GENERAL: Well-nourished, well-developed patient. SKIN: Warm and dry. HEAD: Normocephalic. EYES: No scleral icterus. No injection or drainage. NECK: Supple, trachea midline. No JVD or lymphadenopathy. LYMPHATIC: No adenopathy. CARDIOVASCULAR: Regular rate and rhythm without murmurs. RESPIRATORY: Breath sounds equal bilaterally. No accessory muscle use. GASTROINTESTINAL: Abdomen soft, non-tender, nondistended. EXTREMITIES: No cyanosis, or edema. MUSCULOSKELETAL: Adequate muscle tone. NEUROLOGICAL: No obvious focal deficit. Awake, alert, and oriented x3. PSYCHIATRIC: Appropriate mood and affect; insight and judgment normal. Assessment/Plan - Plan 1. Lower extremity VTE: s/p IR procedure. She will be discharged on apixaban in the outpatient setting. She will need a minimum of 3 months of anticoagulation. She will need close follow up with outpatient child and family therapist Dr. Santiago.
[2017-09-12] MEDS: Levothyroxine 112 MCG Tablet PO SCH (05:45)
[2017-09-12] MEDS: buPROPion 150 MG 12 HR Tablet PO SCH (09:08)
[2017-09-12] MEDS: Senna/Docusate Sodium 8.6/50 MG Tablet PO SCH (09:08)
--- NOTE | 2017-09-12 12:20 | IR ---
EXAM DATE: 09/09/2017 3:45 PM EDT AGE/SEX: 57 years / Female INDICATIONS: Patient with DVT clot left leg. 14 hrs follow up TPA. CLINICAL DATA: This is the patient's subsequent encounter. Patient reports that signs and symptoms h ave been present for 2 days and indicates a pain score of 5/10. MEDICAL/SURGICAL HISTORY: Asthma. Hypothyroidism. sleep apnea, chronic diarrhea. Hysterectomy . Cholecystectomy. COMPARISON: [facility], VENOGRAM IVC W FILTER RETRI, 09/08/2017. . FLUORO TIME (min): 29.26 IMAGE SERIES: 13 ACCESS SITE: Left popliteal vein SEDATION TIME (min): 150 CONTRAST (cc): 140 Visipaque (iodixanol) MEDICATION(S): 8 mg midazolam (Versed) IV 400 mcg fentanyl (Sublimaze) IV DEVICE(S): Left common iliac vein mechanical thrombectomy Clotriever Left common iliac vein [employer] balloon 14 x4 XXL Left common iliac vein stent (balloon expanding) Icast 10mm x 38mm . . PROCEDURE: 1. Conscious sedation with continuous EKG and Oximetry monitoring. 2. Follow-up venography through existing catheter 3. Fluoroscopic guided inferior vena caval filter removal 4. Ultrasound guidance for right common femoral vein catheterization 5. Nonselective venous catheter placement, right common femoral vein 6. Ultrasound guidance for left superficial femoral vein catheterization 7. Left iliac venous catheterization 8. Additional selective venography, left iliac vein 9. Transcatheter thromboembolectomy, left iliac vein 10. Left common iliac vein primary vascular stent placement and angioplasty The risks, benefits and alternatives to the procedure were explained and verbal and written consent w as obtained. The site was prepped in sterile fashion. Full sterile technique was used, including ca p, mask, sterile gloves and gown and a large sterile sheet. Hand hygiene and 2% chlorhexidine and/or betadine/alcohol prep was utilized per protocol for cutaneous antisepsis. The skin and subcutaneous tissues were infiltrated with local anesthetic solution. The patient's existing left popliteal sheath was used to perform follow-up venography of the left leg . This evaluation revealed interval complete recanalization of the left superficial femoral vein. The re was persistent occlusive thrombus in the left common femoral vein and the iliac system. With the intention of performing catheter directed embolectomy and subsequent iliac venous stent plac ement, attention was turned to removal of the patient's inferior vena caval filter. The existing [facility] t neck central line and surrounding skin were prepped as a sterile field as outlined above. Through t he central line, a guidewire was introduced and manipulated down into the IVC. The filter retrieval s laquita was introduced and manipulated into the IVC. A gooseneck scenario was utilized to grasp the pro ximal retrieval hook on the filter. The filter was collapsed into the retrieval sheath and removed in tact without complication. The right neck sheath was then removed and hemostasis was achieved with di rect pressure. Next, attention was turned to the venous catheterization of the right common femoral vein which was p erformed under direct ultrasound guidance with placement of a 4 Togolese vascular sheath to be used for visualization of the iliac venous confluence following sterile prep as outlined above. Finally, the left groin was prepped as outlined above and ultrasound guidance was utilized to access the proximal left superficial femoral vein, low enough to allow extraction of clot from the left bacilio c system and left common femoral vein utilizing the Inari Clotriever system. Pro glide sutures were d eployed into the vein utilizing the preclose technique in anticipation of closure of the large venoto my. The Clotriever sheath was introduced and appropriately deployed into the femoral bifurcation osvaldo on. The Clotriever basket was then advanced over a stiff hydrophilic guidewire into the left iliac sy stem and deployed in the proximal iliac. The basket was gently pulled back through the iliac and out the sheath. There was recovery of voluminous thrombotic debris. Follow-up venography through the peters revealed complete clearance of clot from the iliac system with residual focal irregular stenosis i n the proximal left common iliac consistent with May Thurner physiology. The Clotriever sheath was removed and exchanged with placement of a 16 Togolese hemostatic sheath. Veno graphy from the right-sided sheath was performed to maria isabel the iliac venous confluence. Roadmapping fro m the ipsilateral sheath assisted with visualization of the stenosis. A 10 mm x 38 mm atrium covered stent was then introduced and positioned across the area of proximal iliac stenosis. The stent was de posited with delivery balloon taken to rated burst pressure. The stent was then postdilated using a 1 4 mm x 4 cm XXL balloon. Follow-up venography revealed an excellent venographic result with wide fan ncy of the iliac system and complete resolution of underlying stenosis. The left groin sheath was removed and venotomy closed with the pro glide sutures. The right groin she ath and the left popliteal sheath were removed and hemostasis achieved with direct pressure. Conscious sedation was performed with the prescribed dosages and duration as above in the presence of an independent trained radiology nurse to assist in the monitoring of the patient. EKG and oximetry remained stable throughout the procedure. The patient was taken to recovery area in good stable cond ition FINDINGS: As described in detail above, complete interval clearance of thrombus in the left superfici al femoral vein. Residual mixed age thrombus in the left iliac system cleared with the Clotriever sys tem. Treatment of underlying proximal left common iliac venous stenosis with covered stent placement with an excellent result. CONCLUSION: 1. Uncomplicated successful completion of left iliofemoral venous recanalization with treatment of u nderlying May Thurner iliac stenosis utilizing covered stent placement as described in detail above. 2. I will have the patient remain on heparin anticoagulation overnight. She can be started on oral a nticoagulation tomorrow. 3. At least 6 months of oral anticoagulation and compression stocking utilization would be recommend ed for this patient Electronically signed by: Nishant Montoya MD 09/12/2017 12:19 PM EDT
== END 2017-09-12 14:00 ==
LOC: NEPC 08:13 → NEDA 11:09 → NEPFCDU 15:14 → HCIN 09-04 14:51 → N03 09-08 12:20
PROVIDERS: ADMIT Hospitalist; ATTEND Hospitalist